=== PATIENT | male | born 1955 | race Caucasian/White ===

== ENCOUNTER 2016-08-27 17:37 | Inpatient (IN) | payer BC, OTHER ==
[2016-08-27] MEDS ORDERED: ACETAMINOPHEN 325 MG TABLET PO ONE (18:09)
--- NOTE | 2016-08-27 18:11 | ER Document Report ---
ED Medical Screen (RME) - General Stated Complaint: WEAKNESS Mode of Arrival: Wheelchair Information source: Patient Notes: Patient presents with nausea, vomiting, diarrhea that started yesterday. Patient's had fever and weakness. Patient does complain of low back pain, but reports that he has chronic low back pain. Patient reports vomiting once today but multiple episodes of diarrhea. Patient reports only mild abdominal tenderness. No chest pain or shortness of breath. hx: Diabetes, DVT with filter placement I have greeted and performed a rapid initial assessment of this patient. A comprehensive ED assessment and evaluation of the patient, analysis of test results and completion of the medical decision making process will be conducted by additional ED providers. - Related Data Allergies/Adverse Reactions: No Known Allergies Allergy (Unverified 08/27/16 18:06) Physical Exam - Vital signs Vitals: Temp Pulse Resp BP Pulse Ox 100.6 F H 141 H 21 H 133/96 H 91 L 08/27/16 17:45 08/27/16 17:45 08/27/16 17:45 08/27/16 17:45 08/27/16 17:45 - Cardiovascular Rhythm: Tachycardia Heart sounds: S1 appreciated, S2 appreciated Course - Re-evaluation Re-evalutation: 08/27/16 18:11 sprayer leather advised of patient's status and need for a room. - Vital Signs Vital signs: Temp Pulse Resp BP Pulse Ox 100.6 F H 141 H 21 H 133/96 H 91 L 08/27/16 17:45 08/27/16 17:45 08/27/16 17:45 08/27/16 17:45 08/27/16 17:45
[2016-08-27] MEDS ORDERED: NORMAL SALINE 1000 ML 1,000 ML IV ONE ×3 (18:27→19:43)
--- NOTE | 2016-08-27 18:40 | ER Document Report ---
ED General - General Chief Complaint: Nausea/Vomiting Stated Complaint: WEAKNESS Mode of Arrival: Wheelchair Notes: Patient is a 61-year-old male with past medical history of diabetes, hypertension, hyperlipidemia, history of PE status post IVC filter placement and ongoing anticoagulation who presents with 2 days of persistent vomiting and diarrhea. This is symptoms have been worsening since onset and are severe. Patient has also had a fever at home. Patient denies any history of similar symptoms. No known sick contacts. He has not seen his primary care doctor regarding today's concerns. Nothing improves or worsens. He does admit to feeling slightly short of breath. No hemoptysis but he has had cough. TRAVEL OUTSIDE OF THE [place] IN LAST 30 DAYS: No - Related Data Allergies/Adverse Reactions: No Known Allergies Allergy (Unverified 08/27/16 18:06) Home Medications: Current Home Medications Glipizide [Glucotrol 10 mg Tablet] 10 mg PO Q12 08/27/16 [History] Insulin Glargine,Hum.rec.anlog [Lantus] 22 units SQ QHS 08/27/16 [History] Lisinopril/Hydrochlorothiazide [Zestoretic 20-25 mg Tablet] 1 tab PO DAILY 08/27 [History] Metformin HCl [Glucophage] 1,000 mg PO BID 08/27/16 [History] Multivitamin [Multivitamins] 1 cap PO DAILY 08/27/16 [History] Omeprazole 20 mg PO BID 08/27/16 [History] Pravastatin Sodium [Pravachol] 40 mg PO QHS 08/27/16 [History] Past Medical History - General Information source: Patient - Social History Smoking Status: Never Smoker Chew tobacco use (# tins/day): No Frequency of alcohol use: None Drug Abuse: None Lives with: Spouse/Significant other Family History: Reviewed & Not Pertinent Patient has suicidal ideation: No Patient has homicidal ideation: No Renal/ Medical History: Denies: Hx Peritoneal Dialysis Review of Systems - Review of Systems Notes: Constitutional: Negative for fever. HENT: Negative for sore throat. Eyes: Negative for visual changes. Cardiovascular: Negative for chest pain. Respiratory: Positive for shortness of breath and cough Gastrointestinal: Negative for abdominal pain, positive for vomiting and diarrhea. Genitourinary: Negative for dysuria. Musculoskeletal: Negative for back pain. Skin: Negative for rash. Neurological: Negative for headaches, weakness or numbness. 10 point ROS negative except as marked above and in HPI. Physical Exam - Vital signs Vitals: Temp Pulse Resp BP Pulse Ox 100.6 F H 141 H 21 H 133/96 H 91 L 08/27/16 17:45 08/27/16 17:45 08/27/16 17:45 08/27/16 17:45 08/27/16 17:45 Interpretation: Hypertensive, Tachycardic, Hypoxic, Tachypneic, Febrile Notes: PHYSICAL EXAMINATION: GENERAL: Ill in appearance but in no acute distress HEAD: Atraumatic, normocephalic. EYES: Pupils equal round and reactive to light, extraocular movements intact, sclera anicteric, conjunctiva are normal. ENT: nares patent, oropharynx clear without exudates. Dry mucous membranes. NECK: Normal range of motion, supple without lymphadenopathy LUNGS: Diminished breath sounds bilaterally at the bases. Tachypnea with respiratory rate of 32 breaths per minute. No distress. HEART: Irregular tachycardia with frequent PVCs on monitor, without murmurs ABDOMEN: Obese abdomen. Soft, nontender, normoactive bowel sounds. No guarding , no rebound. No masses appreciated. EXTREMITIES: Normal range of motion, no pitting or edema. No cyanosis. NEUROLOGICAL: No focal neurological deficits. Moves all extremities spontaneously and on command. PSYCH: Normal mood, normal affect. SKIN: Warm, Dry, normal turgor, no rashes or lesions noted. Course - Re-evaluation Re-evalutation: 08/27/16 18:39 Patient presents with tachycardia, hypoxemia, tachypnea, and fever. Initial presentation concerning for either infectious gastritis with persistent vomiting and diarrhea although his hypoxemia does not fit with this presentation and I am concern that patient could have influenza versus pneumonia. A stat portable chest x-ray will be obtained. [facility] have been obtained. Patient will be immediately started on 2 L of IV fluids as he does appear clinically dehydrated on examination. Supplement oxygen as been provided. His abdominal exam is completely benign without any focal tenderness to suggest acute surgical intra-abdominal pathology at this time. His EKG does show frequent PVCs but is otherwise a sinus tachycardia. Patient is critically ill at this time and will require frequent reassessments 08/27/16 19:44 Patient's remains tachycardic although much improved from presentation. His laboratories do demonstrate a leukocytosis and findings consistent with a mild acute kidney injury in the setting of dehydration. BUN/creatinine ratio at 23 consistent with a prerenal azotemia. Patient is given 2 L and will be started on the third at this time. He will be started on levofloxacin and ceftriaxone cover for community-acquired pneumonia. He will require admission given his oxygen dependence, ongoing tachycardia and ill appearance although he does appear improved relative to my initial assessment. 08/27/16 20:06 Patient's heart rate has now down trended into the 110s. Remains mildly tachypneic although in no distress. I have contacted Dr. Nuñez for admission and he states he is unable to accept at this time. 08/28/16 01:16 Patient's tachycardia remains improved. He has again spiked temperature but otherwise remains well in appearance. Dr. Nuñez still has not contacted me for admission of this patient. 08/28/16 03:48 Dr. Nuñez has accepted for addition at this time. Patient's heart rate has improved. He remains stable at this time. - Vital Signs Vital signs: Temp Pulse Resp BP Pulse Ox 99.2 F 141 H 18 105/65 96 08/28/16 02:39 08/27/16 17:45 08/28/16 03:00 08/28/16 03:00 08/28/16 03:00 - Laboratory Result Diagrams: 08/27/16 18:20 08/27/16 18:20 Laboratory results interpreted by me: 08/27/16 08/27/16 08/27/16 18:20 18:20 23:57 WBC 14.0 H Band Neutrophils % 19 H Lymphocytes % (Manual) 3 L Monocytes % (Manual) 2 L Metamyelocytes % 1 H Abs Neuts (Manual) 13.2 H Sodium 130.7 L Chloride 96 L Carbon Dioxide 19 L BUN 34 H Creatinine 1.47 H Est GFR ( Amer) 59 L Est GFR (Non-Af Amer) 49 L Glucose 147 H POC Glucose 128 H Total Protein 8.9 H - Diagnostic Test Radiology reviewed: Image reviewed, Reports reviewed Radiology results interpreted by me: 08/27/16 19:45 Chest x-ray: Retrocardiac opacity - EKG Interpretation by Me Additional EKG results interpreted by me: 08/27/16 20:45 Sinus tachycardia. Rate 135. Frequent PVCs. QTC is 432. No ST elevations or depressions. Posterior axis deviation. No old for comparison Discharge - Discharge Clinical Impression: Sepsis Qualifiers: Sepsis type: sepsis due to unspecified organism Qualified Code(s): A41.9 - Sepsis, unspecified organism Pneumonia Qualifiers: Pneumonia type: due to unspecified organism Laterality: bilateral Lung location : unspecified part of lung Qualified Code(s): J18.9 - Pneumonia, unspecified organism Condition: Fair Disposition: ADMITTED INPATIENT Admitting Provider: [facility] Unit Admitted: [facility]
[2016-08-27 18:54] LABS: HEMOGLOBIN 13.6 g/dL (13.5-17.0); HGB HCT DIFFERENCE -0.2; MEAN CORPUSCULAR HEMOGLOBIN 29.3 pg (27.0-33.4); MEAN CORPUSCULAR HGB CONC 33.3 g/dL (32.0-36.0); MEAN CORPUSCULAR VOLUME 88 fl (80-97); PROTHROMBIN TIME 14.8 SEC (11.4-15.4); RED BLOOD COUNT 4.66 10^6/uL (4.35-5.55); RED CELL DISTRIBUTION WIDTH 13.9 % (11.5-14.0)
[2016-08-27 19:09] LABS: VENOUS BLOOD BASE EXCESS -3.8 mmol/L; VENOUS BLOOD HCO3 21.5 mmol/L (20-32); VENOUS BLOOD PCO2 39.9 mmHg (35-63); VENOUS BLOOD PH 7.35 (7.30-7.42)
[2016-08-27 19:09] LABS: BASOPHILS % (MANUAL) 0 % (0-2); EOSINOPHILS % (MANUAL) 0 % (0-6); LYMPHOCYTES % (MANUAL) 3 % (13-45); TOTAL CELLS COUNTED 100
[2016-08-27 19:12] LABS: TOXIC VACUOLATION PRESENT
[2016-08-27 19:13] LABS: ALANINE AMINOTRANSFERASE 30 U/L (21-72); ALBUMIN 4.2 g/dL (3.5-5.0); ALKALINE PHOSPHATASE 84 U/L (38-126); ANION GAP 16 (5-19); ASPARTATE AMINO TRANSFERASE 32 U/L (17-59); BILIRUBIN,TOTAL 0.7 mg/dL (0.2-1.3); BLOOD UREA NITROGEN 34 mg/dL (7-20); CALCIUM 8.9 mg/dL (8.4-10.2); CARBON DIOXIDE 19 mmol/L (22-30); CHLORIDE 96 mmol/L (98-107); CREATININE RESULT 1.47 mg/dL (0.52-1.25); GLUCOSE 147 mg/dL (75-110); LIPASE 71.1 U/L (23-300); POTASSIUM 4.2 mmol/L (3.6-5.0); SODIUM 130.7 mmol/L (137-145); TOTAL PROTEIN 8.9 g/dL (6.3-8.2)
[2016-08-27 19:16] LABS: OVALOCYTES SLIGHT; POIKILOCYTOSIS SLIGHT
[2016-08-27 19:17] LABS: BAND NEUTROPHILS % (MANUAL) 19 % (3-5); TOXIC GRANULATION SLIGHT
[2016-08-27] MEDS ORDERED: LEVOFLOXACIN 750 MG/D5W RTU 150 ML IV ONE (19:43)
[2016-08-27] MEDS ORDERED: CEFTRIAXONE 1 GM/D5W RTU 50 ML IV ONE (19:43)
[2016-08-27 21:16] LABS: APPEARANCE,URINE SLIGHTLY-CLOUDY; BILIRUBIN,URINE NEGATIVE (NEGATIVE); GLUCOSE, URINE NEGATIVE (NEGATIVE); KETONES,URINE NEGATIVE (NEGATIVE); LEUKOCYTE ESTERASE,URINE NEGATIVE (NEGATIVE); NITRITE,URINE NEGATIVE (NEGATIVE); PROTEIN,URINE NEGATIVE (NEGATIVE); URINE SPECIFIC GRAVITY 1.012; UROBILINOGEN,URINE NEGATIVE mg/dL (<2.0)
--- NOTE | 2016-08-27 23:35 | EKG REPORT ---
SEVERITY:- ABNORMAL ECG - SINUS TACHYCARDIA PAIRED VENTRICULAR PREMATURE COMPLEXES MARKEDLY POSTERIOR QRS AXIS BORDERLINE T ABNORMALITIES, INFERIOR LEADS : Confirmed by: Dominique Dickson MD 27-Aug-2016 23:35:15
[2016-08-28] MEDS ORDERED: NORMAL SALINE 1000 ML 1,000 ML IV ONE ×2 (01:14→01:15)
[2016-08-28] MEDS ORDERED: IBUPROFEN 600 MG TABLET PO ONE (01:15)
[2016-08-28] MEDS ORDERED: GUAIFENESIN SYRP 200 MG/10 ML UDC PO PRN (08:15)
[2016-08-28] MEDS ORDERED: IPRATROPIUM/ALBUTEROL 0.5-2.5 MG/3 ML AMPUL NEB PRN (08:15)
[2016-08-28] MEDS ORDERED: GLUCAGON,HUMAN RECOMB 1 MG INJ IM PRN (08:17)
[2016-08-28] MEDS ORDERED: DEXTROSE 40% GEL 15 GM TUBE PO PRN ×2 (08:17)
[2016-08-28] MEDS ORDERED: DEXTROSE 50%-WATER 25 GM/50 ML DISP.SYRIN IV PRN ×2 (08:17)
[2016-08-28 08:44] LABS: ABSOLUTE LYMPHOCYTES (AUTO) 0.7 10^3/uL (0.5-4.7); ABSOLUTE MONOCYTES (AUTO) 0.7 10^3/uL (0.1-1.4); ABSOLUTE NEUT (AUTO) 7.1 10^3/uL (1.7-8.2); BASOPHILS % (AUTO) 0.2 % (0-2); HEMATOCRIT 33.1 % (37.9-51.0); HGB HCT DIFFERENCE 0.2; LYMPHOCYTES % (AUTO) 8.6 % (13-45); MEAN CORPUSCULAR HEMOGLOBIN 29.8 pg (27.0-33.4); MEAN CORPUSCULAR HGB CONC 33.6 g/dL (32.0-36.0); MEAN CORPUSCULAR VOLUME 89 fl (80-97); RED BLOOD COUNT 3.72 10^6/uL (4.35-5.55); RED CELL DISTRIBUTION WIDTH 13.8 % (11.5-14.0); SEGMENTED NEUTROPHILS % (AUTO) 83.2 % (42-78); WHITE BLOOD COUNT 8.6 10^3/uL (4.0-10.5)
[2016-08-28 08:49] LABS: HEMOGLOBIN 11.1 g/dL (13.5-17.0)
[2016-08-28 09:10] LABS: ANION GAP 8 (5-19); BLOOD UREA NITROGEN 24 mg/dL (7-20); CALCIUM 7.5 mg/dL (8.4-10.2); CARBON DIOXIDE 21 mmol/L (22-30); CHLORIDE 106 mmol/L (98-107); CREATININE RESULT 1.03 mg/dL (0.52-1.25); GLUCOSE 109 mg/dL (75-110); SODIUM 134.9 mmol/L (137-145)
[2016-08-28] MEDS ORDERED: NICOTINE 7 MG/24 HR PATCH.TD24 TD PRN (09:53)
--- NOTE | 2016-08-28 09:54 | PDOC H&P ---
History of Present Illness Admission Date/PCP: 08/28/16 04:10 [facility] Patient complains of: N/V, weakness History of Present Illness: SHIV CRAIG is a 61 year old male with underlying type II diabetes mellitus, hyperlipidemia, arthritis, hypertension, history of pulmonary embolus and DVT, status post caval filter implant, no longer on systemic anticoagulation , and history of a bleeding peptic ulcer 6 years ago, who presents to the emergency room for evaluation of above complaints. He describes a 2 day history of 5-6 episodes of nonbloody non-melenic diarrhea, any single episode of nonbloody non-coffee ground emesis. This is been associated with subjective fever along with slight shortness of breath. Occasional mild cough. No hemoptysis. No recent antibiotic use. No friends or family have similar complaints. No unusual oral intake. Denies any known underlying pulmonary disease such as asthma, COPD, or emphysema. Was quite severely ill upon presentation to the emergency room, but has improved nicely with treatment so far and is feeling much better. Patient has been discussed with emergency room physician who evaluated the patient. . Laboratory results are listed in [facility] and are reviewed. X-ray summary results are listed below, with full report(s) reviewed. . EKG reviewed. No old EKG available for comparison. Social history/personal habits: . 2 daughters. 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 No alcohol use 10 years. No illicit drug use. Allergies/adverse reactions NKDA. Home medications are reviewed by discussion with patient and have been reconciled by nursing staff in [facility]. Home medications initially autopopulated into [facility] may not accurately reflect patient's true medications, dosages, and/or frequencies. REVIEW OF SYSTEMS: Constitutional: No fever or chills. Eyes: Wears glasses. ENT: No swallowing problems or complaints. Partial hearing loss. Pulmonary: See history and present illness. Cardiovascular: No current complaints, including chest pain. Gastrointestinal: See history and present illness. Skin: No current complaints, including rashes. Hematologic: Easy bruising. Neurologic: No current complaints, including numbness or tingling. Musculoskeletal: Joint pain from arthritis. Psychiatric: No current complaints, including anxiety or depression. Endocrine: No current complaints, including polyuria. Genitourinary: No current complaints, including dysuria. PHYSICAL EXAMINATION: 6 feet tall. 119.8 kg. BMI 35.8 kg/m. Temperature 99.2; 101.4 earlier during his emergency room visit. Blood pressure 106/74. Pulse 92 and regular. Respirations are 17 and unlabored. 99% saturation on 2 L oxygen per nasal cannula. Obese but also somewhat stocky otherwise well-developed bearded male appearing perhaps slightly older than his stated age. Pleasant awake alert and cooperative. No obvious distress other than perhaps mildly fatigued, along with perhaps slightly anxious. No agitation. is present at his side; patient approves. Skin is warm and dry. No grossly obvious evidence of rash in areas of skin examined. No subcutaneous nodules palpated. ENT: Hearing grossly normal to normal conversation. Tongue midline on protrusion pink and slightly tacky. Eyes: No scleral icterus. Pupils equal and reactive to light at 4 mm. [place] conjunctivae. Neck is supple and nontender to gentle active range of motion and palpation. Midline trachea. No palpable thyroid nodule mass enlargement or tenderness. Lymphatic: No palpable cervical or clavicular nodes. Neck and lymphatic exams limited by patient body habitus. Psychiatric: Reasonable insight into acute and chronic medical issues. Oriented to time location and why here. Lungs: Auscultation reveals clear and equal breath sounds bilaterally. No use of accessory respiratory muscles. Cardiovascular: Heart regular rate and rhythm, without gallop murmur or rub. No carotid or abdominal aortic bruits. No ankle or pedal edema. palpable dorsalis pedis pulses. Abdomen: soft, somewhat obese, nontender with positive bowel sounds. Unable to adequately evaluate abdomen for masses or organomegaly due to body habitus. Extremities: Feet are warm and dry. No calf tenderness to compression. No grossly obvious visual evidence of calf swelling. Gentle manipulation of lower extremities fails to reveal any obvious evidence of injury or instability to knees hips or ankles. Neurologic: Moves upper extremities grossly normally. Patellar reflexes absent. Absent Babinski. Light touch is intact at feet. Dorsiflexion and plantarflexion of feet 5 / 5 and symmetric. Past Medical History Cardiac Medical History: Reports: DVT, Hyperlipidema, Hypertension, Pulmonary Embolism Denies: Congestive Heart Failure, Myocardial Infarction Pulmonary Medical History: Denies: Asthma, Chronic Obstructive Pulmonary Disease (COPD) EENT Medical History: Reports: Eyes - Glasses, Ears - Partial hearing loss Denies: Throat Neurological Medical History: Denies: Hemorrhagic CVA, Ischemic CVA, Seizures Endocrine Medical History: Reports: Diabetes Mellitus Type 2 Denies: Hyperthyroidism, Hypothyroidism Renal/ Medical History: Reports: None GI Medical History: Reports: Peptic Ulcer Disease - History of bleeding peptic ulcer disease, 6 years ago. Denies: Cirrhosis, Gastroesophageal Reflux Disease, Hepatitis Musculoskeltal Medical History: Reports: Arthritis Skin Medical History: Reports: None Denies: Eczema, Psoriasis Psychiatric Medical History: Reports: Tobacco Dependency Denies: Alcohol Dependency, Depression, General Anxiety Disorder, Substance Abuse Hematology: Reports: Other - Easy bruising Infectious Medical History: Denies: Hepatitis B, Hepatitis C Past Surgical History Past Surgical History: Reports: Tonsillectomy, Other - Caval filter implant. Social History Information Source: Patient Lives with: Spouse/Significant other Smoking Status: Never Smoker - Dips snuff. Frequency of Alcohol Use: None Drugs: None - Advance Directive Resuscitation Status: Full Code Surrogate healthcare decision maker:: Family History Family History: Reviewed & Not Pertinent Parental Family History Reviewed: Yes Children Family History Reviewed: Yes Sibling(s) Family History Reviewed.: Yes Medication/Allergy Home Medications: Glipizide [Glucotrol 10 mg Tablet] 10 mg PO BIDACBS 08/27/16 Insulin Glargine,Hum.rec.anlog [Lantus] 22 units SQ QHS 08/27/16 Lisinopril/Hydrochlorothiazide [Zestoretic 20-25 mg Tablet] 1 tab PO DAILY 08/27 Metformin HCl [Glucophage] 1,000 mg PO BID 08/27/16 Multivitamin [Multivitamins] 1 cap PO DAILY 08/27/16 Omeprazole 20 mg PO BID 08/27/16 Pravastatin Sodium [Pravachol] 40 mg PO QHS 08/27/16 Allergies/Adverse Reactions: No Known Allergies Allergy (Unverified 08/27/16 18:06) Physical Exam Vital Signs: Temp Pulse Resp BP Pulse Ox 97.7 F 87 18 88/63 L 98 08/28/16 07:44 08/28/16 07:44 08/28/16 07:44 08/28/16 07:44 08/28/16 07:44 Intake & Output 08/27/16 08/28/16 08/29/16 00:59 00:59 00:59 Weight 119.8 kg Results Impressions: Chest X-Ray 02/24/17 18:10 IMPRESSION: RETROCARDIAC AIRSPACE DISEASE COULD BE SUBSEGMENTAL ATELECTASIS OR PNEUMONIA. Assessment & Plan - Diagnosis (1) Acidosis Is this a current diagnosis for this admission?: YesPlan: Likely secondary to underlying pneumonia. Should clear with treatment. (2) Pneumonia Qualifiers: Pneumonia type: due to unspecified organism Laterality: unspecified laterality Lung location: unspecified part of lung Qualified Code(s) : J18.9 - Pneumonia, unspecified organism Is this a current diagnosis for this admission?: YesPlan: Patient will be admitted under pneumonia protocol. Incentive spirometry twice a day. PRN DuoNeb's. Antibiotics will consist of Rocephin and intravenous Zithromax.. I strongly encouraged patient to notify staff should patient feel that respiratory status is worsening. Patient is a full code. I have strongly encouraged patient not to get out of bed without notifying staff , , to avoid a fall with injury. Knee high SCDs for DVT prophylaxis, along with subcutaneous Lovenox Impression and plans were discussed with patient, and , both of whom concur. Time spent in evaluation and management of patient: 67 minutes. (3) Renal insufficiency Is this a current diagnosis for this admission?: YesPlan: Probably an element of dehydration. No old labs available for comparison. Follow-up chemistry. (4) Diarrhea Qualifiers: Diarrhea type: unspecified type Qualified Code(s): R19.7 - Diarrhea , unspecified Is this a current diagnosis for this admission?: YesPlan: Stool for C. difficile. (5) Diabetes mellitus type 2 in obese Is this a current diagnosis for this admission?: YesPlan: Diabetic cardiac diet. Accu-Cheks with appropriate sliding scale coverage.Resume home medications as appropriate once these have been reviewed. (6) HTN (hypertension) Qualifiers: Hypertension type: essential hypertension Qualified Code(s): I10 - Essential (primary) hypertension Is this a current diagnosis for this admission?: YesPlan: Resume home medications as appropriate once these have been reviewed. (7) History of DVT (deep vein thrombosis) Is this a current diagnosis for this admission?: Yes (8) History of pulmonary embolism Is this a current diagnosis for this admission?: Yes (9) Hyperlipidemia Qualifiers: Hyperlipidemia type: unspecified Qualified Code(s): E78.5 - Hyperlipidemia, unspecified Is this a current diagnosis for this admission?: YesPlan: Resume home medications as appropriate once these have been reviewed. (10) S/P insertion of inferior vena caval filter Is this a current diagnosis for this admission?: Yes (11) Tobacco dependency Is this a current diagnosis for this admission?: YesPlan: When necessary nicotine patch. - Inpatient Certification Based on my medical assessment, after consideration of the patient's comorbidities, presenting symptoms, or acuity I expect that the services needed warrant INPATIENT care.: Yes I certify that my determination is in accordance with my understanding of Medicare's requirements for reasonable and necessary INPATIENT services [42 CFR 412.3e].: Yes Medical Necessity: Need Close Monitoring Due to Risk of Patient Decompensation, Need for IV Antibiotics, Risk of Complication if Not Cared For in Hospital
[2016-08-28] MEDS ORDERED: (PENDING PHARMACY ID) (Multivitamin [Multivitamins] 1 CAP) PO SCH (10:00)
[2016-08-28] MEDS ORDERED: (PENDING PHARMACY ID) (Lisinopril/Hydrochlorothiazide [Zestoretic 20-25 Mg Tablet] 1 TAB) PO SCH (10:00)
[2016-08-28] MEDS ORDERED: HYDROCHLOROTHIAZIDE 25 MG TABLET PO ONE (12:00)
[2016-08-28] MEDS ORDERED: GLIPIZIDE 5 MG TABLET PO ONE (12:00)
[2016-08-28] MEDS ORDERED: LISINOPRIL 10 MG TABLET PO ONE (12:00)
[2016-08-28] MEDS ORDERED: MULTIVITAMIN TABLET PO ONE (12:00)
[2016-08-28] MEDS: AZITHROMYCIN 500 MG in DEXTROSE 5%-WATER 250 ML IV SCH (12:10)
[2016-08-28] MEDS ORDERED: ASPIRIN 325 MG TABLET ONE (12:13)
[2016-08-28] MEDS: ACETAMINOPHEN 325 MG TABLET PO PRN ×2 (14:15→20:13)
--- NOTE | 2016-08-28 17:21 | PDOC PROGRESS REPORT ---
Subjective Progress Note for:: 08/28/16 Subjective:: This 61-year-old man with a history of diabetes hyperlipidemia hypertension arthritis history of DVT and pulmonary embolism, history of IVC filter placement and history of bleeding peptic ulcer 6 years ago. He presented to the ED early this morning with a 2 day history of breath, nonproductive cough, subjective fevers and several episodes of diarrhea. In the ED his WBC was 14.0 but his systolic blood pressure was in the 80s and he appeared quite ill. His venous CO2 was slightly low and his venous pH was 7.35. Chest x-ray showed a retrocardiac opacity. He received 2 IV fluids in the emergency department and the patient felt much better afterwards. He was subsequently admitted with a diagnosis of pneumonia and mild acidosis. He was started on Rocephin and intravenous Zithromax. Physical Exam Vital Signs: Temp Pulse Resp BP Pulse Ox 99.8 F 98 14 119/76 98 08/28/16 14:55 08/28/16 15:30 08/28/16 15:30 08/28/16 14:55 08/28/16 15:30 General appearance: PRESENT: no acute distress, well-developed, well-nourished Head exam: PRESENT: atraumatic, normocephalic Eye exam: PRESENT: conjunctiva pink, EOMI, PERRLA. ABSENT: scleral icterus Ear exam: PRESENT: normal external ear exam Mouth exam: PRESENT: moist, tongue midline Neck exam: ABSENT: carotid bruit, JVD, lymphadenopathy, thyromegaly Respiratory exam: PRESENT: clear to auscultation nora. ABSENT: rales, rhonchi, wheezes Cardiovascular exam: PRESENT: RRR. ABSENT: diastolic murmur, rubs, systolic murmur Pulses: PRESENT: normal dorsalis pedis pul Vascular exam: PRESENT: normal capillary refill GI/Abdominal exam: PRESENT: normal bowel sounds, soft. ABSENT: distended, guarding, mass, organolmegaly, rebound, tenderness Rectal exam: PRESENT: deferred Extremities exam: PRESENT: full ROM. ABSENT: calf tenderness, clubbing, pedal edema Neurological exam: PRESENT: alert, awake, oriented to person, oriented to place , oriented to time, oriented to situation, CN II-XII grossly intact. ABSENT: motor sensory deficit Psychiatric exam: PRESENT: appropriate affect, normal mood. ABSENT: homicidal ideation, suicidal ideation Skin exam: PRESENT: dry, intact, warm. ABSENT: cyanosis, rash Results Laboratory Results: 08/28/16 08:38 08/28/16 08:38 08/28/16 08/28/16 08:38 08:38 WBC 8.6 RBC 3.72 L Hgb 11.1 L D Hct 33.1 L MCV 89 MCH 29.8 MCHC 33.6 RDW 13.8 Plt Count 257 Seg Neutrophils % 83.2 H Lymphocytes % 8.6 L Monocytes % 8.0 Eosinophils % 0.0 Basophils % 0.2 Absolute Neutrophils 7.1 Absolute Lymphocytes 0.7 Absolute Monocytes 0.7 Absolute Eosinophils 0.0 Absolute Basophils 0.0 Sodium 134.9 L Potassium 4.0 Chloride 106 Carbon Dioxide 21 L Anion Gap 8 BUN 24 H Creatinine 1.03 Est GFR ( Amer) > 60 Est GFR (Non-Af Amer) > 60 Glucose 109 Calcium 7.5 L Impressions: Chest X-Ray 08/27/16 18:10 IMPRESSION: RETROCARDIAC AIRSPACE DISEASE COULD BE SUBSEGMENTAL ATELECTASIS OR PNEUMONIA. Assessment & Plan - Diagnosis (1) Pneumonia Qualifiers: Pneumonia type: due to unspecified organism Laterality: left Lung location: unspecified part of lung Qualified Code(s): J18.9 - Pneumonia, unspecified organism Is this a current diagnosis for this admission?: YesPlan: Continue Rocephin and intravenous Zithromax. (2) Hypotension Is this a current diagnosis for this admission?: YesPlan: I suspect this is largely due to continued use of his antihypertensive medication in the face of mild dehydration. Will continue IV fluids. (3) Renal insufficiency Is this a current diagnosis for this admission?: YesPlan: I suspect this is largely prerenal azotemia. We'll monitor on IV fluids. (4) Diabetes mellitus type 2 in obese Is this a current diagnosis for this admission?: YesPlan: We'll continue home medications and monitor. (5) HTN (hypertension) Qualifiers: Hypertension type: essential hypertension Qualified Code(s): I10 - Essential (primary) hypertension Is this a current diagnosis for this admission?: YesPlan: Currently hypotensive. We'll hold his lisinopril/hydrochlorothiazide as needed. (6) Hyperlipidemia Qualifiers: Hyperlipidemia type: unspecified Qualified Code(s): E78.5 - Hyperlipidemia, unspecified Is this a current diagnosis for this admission?: Yes (7) History of DVT (deep vein thrombosis) Is this a current diagnosis for this admission?: Yes (8) History of pulmonary embolism Is this a current diagnosis for this admission?: Yes (9) S/P insertion of inferior vena caval filter Is this a current diagnosis for this admission?: Yes - Time Time Spent with patient: 25-34 minutes
[2016-08-28] MEDS: CEFTRIAXONE 1 GM/D5W RTU 1 GM/50 ML RTUPB IV SCH (17:39)
[2016-08-28] MEDS: GLIPIZIDE 5 MG TABLET PO SCH (17:43)
[2016-08-28] MEDS: ATORVASTATIN CALCIUM 10 MG TABLET PO SCH (21:35)
[2016-08-28] MEDS ORDERED: (PENDING PHARMACY ID) (Pravastatin Sodium [Pravachol] 40 MG) PO SCH (22:00)
[2016-08-28] MEDS: INSULIN GLARGINE,HUM.REC.ANLOG 300 UNIT/3 ML INSULN.PEN SUBCUT SCH (22:23)
[2016-08-29 05:59] LABS: ABSOLUTE BASOPHILS # (AUTO) 0.1 10^3/uL (0.0-0.2); ABSOLUTE LYMPHOCYTES (AUTO) 0.9 10^3/uL (0.5-4.7); ABSOLUTE MONOCYTES (AUTO) 0.5 10^3/uL (0.1-1.4); ABSOLUTE NEUT (AUTO) 4.8 10^3/uL (1.7-8.2); BASOPHILS % (AUTO) 1.2 % (0-2); EOSINOPHILS % (AUTO) 0.5 % (0-6); HEMATOCRIT 33.6 % (37.9-51.0); HEMOGLOBIN 11.5 g/dL (13.5-17.0); HGB HCT DIFFERENCE 0.9; LYMPHOCYTES % (AUTO) 14.2 % (13-45); MEAN CORPUSCULAR HEMOGLOBIN 30.3 pg (27.0-33.4); MEAN CORPUSCULAR HGB CONC 34.4 g/dL (32.0-36.0); MEAN CORPUSCULAR VOLUME 88 fl (80-97); MONOCYTES % (AUTO) 8.1 % (3-13); RED BLOOD COUNT 3.81 10^6/uL (4.35-5.55); RED CELL DISTRIBUTION WIDTH 13.9 % (11.5-14.0); WHITE BLOOD COUNT 6.3 10^3/uL (4.0-10.5)
[2016-08-29 06:22] LABS: ANION GAP 10 (5-19); BLOOD UREA NITROGEN 14 mg/dL (7-20); CALCIUM 8.8 mg/dL (8.4-10.2); CARBON DIOXIDE 23 mmol/L (22-30); CHLORIDE 105 mmol/L (98-107); CREATININE RESULT 0.77 mg/dL (0.52-1.25); GLUCOSE 92 mg/dL (75-110); SODIUM 137.5 mmol/L (137-145)
[2016-08-29] MEDS: ENOXAPARIN SODIUM INJ 40 MG/0.4 ML DISP.SYRIN SUBCUT SCH (08:01)
[2016-08-29] MEDS: GLIPIZIDE 5 MG TABLET PO SCH ×2 (08:01→17:19)
[2016-08-29] MEDS: LISINOPRIL 10 MG TABLET PO SCH (10:22)
[2016-08-29] MEDS: AZITHROMYCIN 500 MG in DEXTROSE 5%-WATER 250 ML IV SCH (10:22)
[2016-08-29] MEDS: MULTIVITAMIN TABLET PO SCH (10:22)
[2016-08-29] MEDS: HYDROCHLOROTHIAZIDE 25 MG TABLET PO SCH (10:24)
[2016-08-29] MEDS: OXYCODONE HCL IR 5 MG TABLET PO PRN ×2 (12:36→19:55)
--- NOTE | 2016-08-29 14:31 | PDOC PROGRESS REPORT ---
Subjective Progress Note for:: 08/29/16 Subjective:: This 61-year-old man with a history of diabetes hyperlipidemia hypertension arthritis history of DVT and pulmonary embolism, history of IVC filter placement and history of bleeding peptic ulcer 6 years ago. He presented to the ED early this morning with a 2 day history of shortness of breath, nonproductive cough, subjective fevers and several episodes of diarrhea. In the ED his WBC was 14.0 but his systolic blood pressure was in the 80s and he appeared quite ill. His venous CO2 was slightly low and his venous pH was 7.35. Chest x-ray showed a retrocardiac opacity. He received 2 IV fluids in the emergency department and the patient felt much better afterwards. He was subsequently admitted with a diagnosis of pneumonia and mild acidosis. He was started on Rocephin and intravenous Zithromax. Today the patient feels better than on admission but still not very well. He complains of severe general malaise and headache. He feels weak but not particularly short of breath. He does not have a cough. He has mild abdominal pain and mild diarrhea. He has scattered muscular aches and pains, especially low back pain. Physical Exam Vital Signs: Temp Pulse Resp BP Pulse Ox 98.4 F 84 16 122/75 98 08/29/16 11:34 08/29/16 14:11 08/29/16 14:11 08/29/16 11:34 08/29/16 14:11 Intake & Output 08/28/16 08/29/16 08/30/16 06:59 06:59 06:59 Intake Total 2860 Output Total 950 Balance 1910 Weight 118.8 kg Additional comments: General appearance: PRESENT: mild distress, well-developed, well-nourished Head exam: PRESENT: atraumatic, normocephalic Eye exam: PRESENT: conjunctiva pink, EOMI, PERRLA. ABSENT: scleral icterus Ear exam: PRESENT: normal external ear exam Mouth exam: PRESENT: moist, tongue midline Neck exam: ABSENT: carotid bruit, JVD, lymphadenopathy, thyromegaly Respiratory exam: PRESENT: clear to auscultation nora. ABSENT: rales, rhonchi, wheezes Cardiovascular exam: PRESENT: RRR. ABSENT: diastolic murmur, rubs, systolic murmur Pulses: PRESENT: normal dorsalis pedis pul Vascular exam: PRESENT: normal capillary refill GI/Abdominal exam: PRESENT: normal bowel sounds, soft. ABSENT: distended, guarding, mass, organolmegaly, rebound, tenderness Rectal exam: PRESENT: deferred Extremities exam: PRESENT: full ROM. ABSENT: calf tenderness, clubbing, pedal edema Neurological exam: PRESENT: alert, awake, oriented to person, oriented to place , oriented to time, oriented to situation, CN II-XII grossly intact. ABSENT: motor sensory deficit Psychiatric exam: PRESENT: appropriate affect, normal mood. ABSENT: homicidal ideation, suicidal ideation Skin exam: PRESENT: dry, intact, warm. ABSENT: cyanosis, rash Results Laboratory Results: 08/29/16 05:07 08/29/16 05:07 08/29/16 08/29/16 05:07 05:07 WBC 6.3 RBC 3.81 L Hgb 11.5 L Hct 33.6 L MCV 88 MCH 30.3 MCHC 34.4 RDW 13.9 Plt Count 270 Seg Neutrophils % 76.0 Lymphocytes % 14.2 Monocytes % 8.1 Eosinophils % 0.5 Basophils % 1.2 Absolute Neutrophils 4.8 Absolute Lymphocytes 0.9 Absolute Monocytes 0.5 Absolute Eosinophils 0.0 Absolute Basophils 0.1 Sodium 137.5 Potassium 4.0 Chloride 105 Carbon Dioxide 23 Anion Gap 10 BUN 14 Creatinine 0.77 Est GFR ( Amer) > 60 Est GFR (Non-Af Amer) > 60 Glucose 92 Calcium 8.8 Impressions: Chest X-Ray 08/27/16 18:10 IMPRESSION: RETROCARDIAC AIRSPACE DISEASE COULD BE SUBSEGMENTAL ATELECTASIS OR PNEUMONIA. Assessment & Plan - Diagnosis (1) Pneumonia Qualifiers: Pneumonia type: due to unspecified organism Laterality: left Lung location: unspecified part of lung Qualified Code(s): J18.9 - Pneumonia, unspecified organism Is this a current diagnosis for this admission?: YesPlan: Treating as pneumonia because of slightly abnormal chest x-ray, nonproductive cough on admission, weakness and shortness of breath. However he remains afebrile. His initial white count of 14.0 his improved steadily to 8.6, then to 6.3. He remains on IV Rocephin and azithromycin. (2) Hypotension Is this a current diagnosis for this admission?: YesPlan: Hypotension has resolved. He remains on IV fluids. (3) Renal insufficiency Is this a current diagnosis for this admission?: YesPlan: His acute renal failure of admission was prerenal azotemia. It has completely normalized on IV fluids. We'll continue to monitor. (4) Diabetes mellitus type 2 in obese Is this a current diagnosis for this admission?: YesPlan: Glucose is well controlled. Continue current Rx. (5) HTN (hypertension) Qualifiers: Hypertension type: essential hypertension Qualified Code(s): I10 - Essential (primary) hypertension Is this a current diagnosis for this admission?: YesPlan: Hypertension is well controlled. Continue current Rx. (6) Hyperlipidemia Qualifiers: Hyperlipidemia type: unspecified Qualified Code(s): E78.5 - Hyperlipidemia, unspecified Is this a current diagnosis for this admission?: Yes (7) History of DVT (deep vein thrombosis) Is this a current diagnosis for this admission?: YesPlan: On Lovenox prophylaxis. (8) History of pulmonary embolism Is this a current diagnosis for this admission?: Yes (9) S/P insertion of inferior vena caval filter Is this a current diagnosis for this admission?: Yes - Time Time Spent with patient: 15-24 minutes
[2016-08-29] MEDS: CEFTRIAXONE 1 GM/D5W RTU 1 GM/50 ML RTUPB IV SCH (17:26)
[2016-08-29] MEDS: ATORVASTATIN CALCIUM 10 MG TABLET PO SCH (22:01)
[2016-08-29] MEDS: NORMAL SALINE 1000 ML 1,000 ML IV PRN (22:02)
[2016-08-29] MEDS: INSULIN GLARGINE,HUM.REC.ANLOG 300 UNIT/3 ML INSULN.PEN SUBCUT SCH (22:03)
[2016-08-30] MEDS: NORMAL SALINE 1000 ML 1,000 ML IV PRN (05:45)
[2016-08-30 06:53] LABS: ABSOLUTE EOSINOPHILS # (AUTO) 0.1 10^3/uL (0.0-0.6); ABSOLUTE LYMPHOCYTES (AUTO) 0.8 10^3/uL (0.5-4.7); ABSOLUTE MONOCYTES (AUTO) 0.6 10^3/uL (0.1-1.4); ABSOLUTE NEUT (AUTO) 3.9 10^3/uL (1.7-8.2); BASOPHILS % (AUTO) 0.5 % (0-2); EOSINOPHILS % (AUTO) 1.1 % (0-6); HEMATOCRIT 32.5 % (37.9-51.0); HGB HCT DIFFERENCE 0.5; LYMPHOCYTES % (AUTO) 14.3 % (13-45); MEAN CORPUSCULAR HEMOGLOBIN 29.9 pg (27.0-33.4); MEAN CORPUSCULAR HGB CONC 33.7 g/dL (32.0-36.0); MEAN CORPUSCULAR VOLUME 89 fl (80-97); RED BLOOD COUNT 3.67 10^6/uL (4.35-5.55); RED CELL DISTRIBUTION WIDTH 13.7 % (11.5-14.0); SEGMENTED NEUTROPHILS % (AUTO) 72.1 % (42-78); WHITE BLOOD COUNT 5.4 10^3/uL (4.0-10.5)
[2016-08-30 07:11] LABS: ANION GAP 9 (5-19); BLOOD UREA NITROGEN 10 mg/dL (7-20); CALCIUM 8.8 mg/dL (8.4-10.2); CARBON DIOXIDE 23 mmol/L (22-30); CHLORIDE 105 mmol/L (98-107); CREATININE RESULT 0.72 mg/dL (0.52-1.25); GLUCOSE 88 mg/dL (75-110); SODIUM 137.3 mmol/L (137-145)
[2016-08-30] MEDS: ENOXAPARIN SODIUM INJ 40 MG/0.4 ML DISP.SYRIN SUBCUT SCH (09:53)
[2016-08-30] MEDS: LISINOPRIL 10 MG TABLET PO SCH (09:54)
[2016-08-30] MEDS: HYDROCHLOROTHIAZIDE 25 MG TABLET PO SCH (09:55)
[2016-08-30] MEDS: MULTIVITAMIN TABLET PO SCH (09:55)
[2016-08-30] MEDS: GLIPIZIDE 5 MG TABLET PO SCH (09:55)
[2016-08-30 12:49] LABS: PATH REVIEW PATHOLOGIST REVIEWED
[2016-08-30 12:56] VITALS: BP 88/63
--- NOTE | 2016-08-30 13:14 | PDOC DISCHARGE SUMMARY ---
General - Admit/Disc Date/PCP Admission Date/Primary Care Provider: 08/28/16 08:15 Discharge Date: 08/30/16 - Discharge Diagnosis (1) Pneumonia Is this a current diagnosis for this admission?: YesSummary: This 61-year-old man with a history of diabetes, hyperlipidemia, hypertension, arthritis, history of DVT and pulmonary embolism, history of IVC filter placement and history of peptic ulcer 6 years ago presented to the ED with a 2 day history of shortness of breath, nonproductive cough, subjective fevers, and several episodes of diarrhea. The admission chest x-ray showed a retrocardiac shadow that there could be subsegmental atelectasis or pneumonia. While in the hospital he continued to complain of severe general malaise, myalgias and headache. The cough was never productive. His chest was never congested. His shortness of breath resolved. His initial white blood count elevation of 14.0 rapidly defervesced to normal. The overall picture seems most consistent with a viral process including the probability of a viral pneumonia. He was treated with antibiotics for a few days but after developing a rash these were discontinued. At the time of discharge his lungs are clear, the cough has resolved, and he has normal oxygenation on room air. (2) Hypotension Is this a current diagnosis for this admission?: YesSummary: Resolved. He will resume his blood pressure medications. (3) Renal insufficiency Is this a current diagnosis for this admission?: YesSummary: His mild acute renal failure on admission was prerenal azotemia. It completely normalized on IV fluids after the first day. (4) Diabetes mellitus type 2 in obese Is this a current diagnosis for this admission?: YesSummary: Glucose remained in good control. He will continue his home medications. (5) HTN (hypertension) Is this a current diagnosis for this admission?: YesSummary: Blood pressure is within acceptable range. He will continue his home medications. (6) Hyperlipidemia Is this a current diagnosis for this admission?: YesSummary: Continue home Rx. (7) History of DVT (deep vein thrombosis) Is this a current diagnosis for this admission?: YesSummary: He received to prophylactic dose Lovenox during the hospitalization. There is no clinical evidence of DVT. (8) History of pulmonary embolism Is this a current diagnosis for this admission?: Yes (9) S/P insertion of inferior vena caval filter Is this a current diagnosis for this admission?: Yes - Additional Information Resuscitation Status: Full Code Discharge Diet: Diabetic Discharge Activity: Activity As Tolerated Home Medications: Glipizide [Glucotrol 10 mg Tablet] 10 mg PO BIDACBS 08/27/16 Insulin Glargine,Hum.rec.anlog [Lantus] 22 units SQ QHS 08/27/16 Lisinopril/Hydrochlorothiazide [Zestoretic 20-25 mg Tablet] 1 tab PO DAILY 08/27 Metformin HCl [Glucophage] 1,000 mg PO BID 08/27/16 Multivitamin [Multivitamins] 1 cap PO DAILY 08/27/16 Omeprazole 20 mg PO BID 08/27/16 Pravastatin Sodium [Pravachol] 40 mg PO QHS 08/27/16 History of Present Illness Patient complains of: Shortness of breath, nonproductive cough, subjective fevers, diarrhea, malaise, headache, myalgias History of Present Illness: This 61-year-old man with a history of diabetes hyperlipidemia hypertension arthritis history of DVT and pulmonary embolism, history of IVC filter placement and history of bleeding peptic ulcer 6 years ago. He presented to the ED early this morning with a 2 day history of breath, nonproductive cough, subjective fevers and several episodes of diarrhea. In the ED his WBC was 14.0 but his systolic blood pressure was in the 80s and he appeared quite ill. His venous CO2 was slightly low and his venous pH was 7.35. Chest x-ray showed a retrocardiac opacity. He received 2 IV fluids in the emergency department and the patient felt much better afterwards. He was subsequently admitted with a diagnosis of pneumonia and mild acidosis. He was started on Rocephin and intravenous Zithromax. Hospital Course Hospital Course: The patient was treated with IV fluids and intravenous Rocephin and Zithromax. He also received symptomatic treatment for his myalgias and headache. He felt much better even after his first 2 L of IV fluids. And felt progressively better as the hospitalization and continued. On the day prior to discharge she developed a generalized rash. His antibiotics were discontinued. On the day of discharge the patient is feeling much improved overall. He will be discharged home to continue his previous home medications. He will seek follow-up with his primary care physician. Physical Exam Vital Signs: Temp Pulse Resp BP Pulse Ox 98.1 F 78 20 88/63 L 99 08/30/16 12:53 08/30/16 12:53 08/30/16 12:53 08/30/16 12:53 08/30/16 12:53 Intake & Output 08/29/16 08/30/16 08/31/16 06:59 06:59 06:59 Intake Total 2860 5410 Output Total 950 Balance 1910 5410 Weight 118.8 kg 118 kg Additional comments: General appearance: no acute distress, well-developed, well-nourished Head exam: PRESENT: atraumatic, normocephalic Eye exam: PRESENT: conjunctiva pink, EOMI, PERRLA. ABSENT: scleral icterus Ear exam: PRESENT: normal external ear exam Mouth exam: PRESENT: moist, tongue midline Neck exam: ABSENT: carotid bruit, JVD, lymphadenopathy, thyromegaly Respiratory exam: PRESENT: clear to auscultation nora. ABSENT: rales, rhonchi, wheezes Cardiovascular exam: PRESENT: RRR. ABSENT: diastolic murmur, rubs, systolic murmur Pulses: PRESENT: normal dorsalis pedis pul Vascular exam: PRESENT: normal capillary refill GI/Abdominal exam: PRESENT: normal bowel sounds, soft. ABSENT: distended, guarding, mass, organolmegaly, rebound, tenderness Rectal exam: PRESENT: deferred Extremities exam: PRESENT: full ROM. ABSENT: calf tenderness, clubbing, pedal edema Neurological exam: PRESENT: alert, awake, oriented to person, oriented to place , oriented to time, oriented to situation, CN II-XII grossly intact. ABSENT: motor sensory deficit Psychiatric exam: PRESENT: appropriate affect, normal mood. ABSENT: homicidal ideation, suicidal ideation Skin exam: PRESENT: dry, intact, warm. ABSENT: cyanosis, rash Results Laboratory Results: 08/30/16 06:04 08/30/16 06:04 08/30/16 08/30/16 06:04 06:04 WBC 5.4 RBC 3.67 L Hgb 11.0 L Hct 32.5 L MCV 89 MCH 29.9 MCHC 33.7 RDW 13.7 Plt Count 269 Seg Neutrophils % 72.1 Lymphocytes % 14.3 Monocytes % 12.0 Eosinophils % 1.1 Basophils % 0.5 Absolute Neutrophils 3.9 Absolute Lymphocytes 0.8 Absolute Monocytes 0.6 Absolute Eosinophils 0.1 Absolute Basophils 0.0 Sodium 137.3 Potassium 4.0 Chloride 105 Carbon Dioxide 23 Anion Gap 9 BUN 10 Creatinine 0.72 Est GFR ( Amer) > 60 Est GFR (Non-Af Amer) > 60 Glucose 88 Calcium 8.8 Impressions: Chest X-Ray 08/27/16 18:10 IMPRESSION: RETROCARDIAC AIRSPACE DISEASE COULD BE SUBSEGMENTAL ATELECTASIS OR PNEUMONIA. Qualifiers PATEINT BEING DISCHARGED WITH ANY OF THE FOLLOWING DIAGNOSIS?: No
== END 2016-08-30 13:29 | disposition home or self-care (01) | DRG 194 ==
LOC: ER 17:37 → EH 08-28 04:10 → UNDOADMIN 08-28 04:10 → EH 08-28 07:27 → 3W 08-28 07:27 → 4W 08-29 19:36
PROVIDERS: ADMIT Family Medicine; ATTEND Family Medicine
PROC: 3E0F73Z Introduction of Anti-inflammatory into Respiratory Tract, Via Natural or Artificial Opening (ICD-10-PCS; principal; 2016-08-28)
DX: J18.9 Pneumonia, unspecified organism (principal); N17.9 Acute kidney failure, unspecified; E87.2 Acidosis; E11.9 Type 2 diabetes mellitus without complications; E78.5 Hyperlipidemia, unspecified; I10 Essential (primary) hypertension; M19.90 Unspecified osteoarthritis, unspecified site; I95.9 Hypotension, unspecified; F17.210 Nicotine dependence, cigarettes, uncomplicated; E86.0 Dehydration; E66.9 Obesity, unspecified; Z68.35 Body mass index [BMI] 35.0-35.9, adult; Z86.718 Personal history of other venous thrombosis and embolism; Z86.711 Personal history of pulmonary embolism; Z87.11 Personal history of peptic ulcer disease; Z79.899 Other long term (current) drug therapy
CPT/HCPCS: 36415; 71010; 80048; 80053; 81001; 82803; 82962; 83605; 83690; 85025; 85610; 87040; 87086; 87493; 87804; 93005; 93010; 94799; 99285; J0456; J0696; J1650; J1815; J1956; J3490; J7030; J7060

== ENCOUNTER 2017-07-13 10:44 | Emergency (ER) | payer OTHER, BC ==
[2017-07-13] MEDS ORDERED: HYDROCODONE/ACETAMINOPHEN 5-325 MG TABLET PO ONE (11:29)
--- NOTE | 2017-07-13 12:17 | RADIOLOGY REPORT (SQ) ---
EXAM DESCRIPTION: CHEST PA/LAT COMPLETED DATE/TIME: 07/13/2017 12:07 pm REASON FOR STUDY: fall, pain, cough COMPARISON: Chest films 08/27/2016, 07/03/2009 CT angio chest 07/03/2009 EXAM PARAMETERS: NUMBER OF VIEWS: two views TECHNIQUE: Digital Frontal and Lateral radiographic views of the chest acquired. RADIATION DOSE: NA LIMITATIONS: none FINDINGS: LUNGS AND PLEURA: No opacities, masses or pneumothorax. No pleural effusion. MEDIASTINUM AND HILAR STRUCTURES: No masses or contour abnormalities. HEART AND VASCULAR STRUCTURES: Heart normal size. No evidence for failure. Tortuous uncoiled thorac ic aorta BONES: Chronic appearing 50% compression deformity of T10 HARDWARE: None in the chest. OTHER: No other significant finding. IMPRESSION: No acute findings TECHNICAL DOCUMENTATION: JOB ID: [id number] [employer]- All Rights Reserved
--- NOTE | 2017-07-13 12:21 | RADIOLOGY REPORT (SQ) ---
EXAM DESCRIPTION: HIP LEFT AP/LATERAL COMPLETED DATE/TIME: 07/13/2017 12:07 pm REASON FOR STUDY: fall, pain, cough COMPARISON: Chest films same date NUMBER OF VIEWS: Two views. TECHNIQUE: AP pelvis and additional frog-leg view of the left hip. LIMITATIONS: None. FINDINGS: MINERALIZATION: Diffusely abnormal. Multiple permeative lytic lesions are seen throughout the bony pelvis and proximal femurs well worrisome for myeloma. Metastatic disease could also cause this appearance. LEFT HIP: Very subtle left femoral neck lucency with surrounding sclerosis worrisome for insufficienc y fracture. This is marked with an arrow. Left hip joint space well maintained. No bulky bony spur ring. RIGHT HIP: No fracture or dislocation. No joint space narrowing or bony spurring. PUBIS AND ISCHIUM: No fracture. PELVIS: No fracture. SACRUM: No fracture or dislocation. No worrisome bone lesions. SOFT TISSUES: No findings. OTHER: No other significant finding. IMPRESSION: Very subtle left femoral neck lucency with surrounding sclerosis worrisome for insuffici ency or pathologic fracture. This is nondisplaced nonangulated. Multiple lytic lesions throughout the visualized bony structures worrisome for myeloma or metastatic disease TECHNICAL DOCUMENTATION: JOB ID: [id number] [employer]- All Rights Reserved
--- NOTE | 2017-07-13 14:00 | RADIOLOGY REPORT (SQ) ---
EXAM DESCRIPTION: CT PELVIS WITHOUT COMPLETED DATE/TIME: 07/13/2017 1:36 pm REASON FOR STUDY: possible femoral neck fx on x ray? COMPARISON: Radiographs from earlier. TECHNIQUE: CT scan of the pelvis performed without intravenous or oral contrast. Images reviewed wi th soft tissue and bone windows. Reconstructed coronal and sagittal MPR images reviewed. All images stored on PACS. All CT scanners at this facility use dose modulation, iterative reconstruction, and/or weight based d osing when appropriate to reduce radiation dose to as low as reasonably achievable (ALARA). [facility]: Dose Right [facility]: CareDose [facility]: Dose Right [facility]: Teradose 4D [facility]: Smart [employer] RADIATION DOSE: CT Rad equipment meets quality standard of care and radiation dose reduction techniq ues were employed. CTDIvol: 33.7 mGy. DLP: 1292 mGy-cm. mGy. LIMITATIONS: None. FINDINGS: PELVIC BONES: Very heterogeneous bone density. Mixed lytic and sclerotic lesions througho ut. VISUALIZED SPINE: Lower lumbar spondylosis. Disc space narrowing at the lowest 3 visualized levels w ithout fracture. Scattered lesions in the sacrum. HIP(S): Several faint sclerotic lesions in the right hip and proximal femur. More extensive abnormal ity related to the left proximal femur. This includes gracy bone destruction in the inferior femoral neck and intertrochanteric proximal left femur. No discrete fracture line identified, however the b one is significantly compromised in the femoral neck, predisposing to pathologic fracture. PELVIC SOFT TISSUES: Fundal bladder thickening without discrete mass. No pelvic free fluid or adenop athy or gross mass. No evidence of overt urinary obstruction, retroperitoneal adenopathy or aortic a neurysm. EXTRAPELVIC SOFT TISSUES: No inguinal adenopathy or hernia. OTHER: No other significant finding. IMPRESSION: 1. Metastatic disease is confirmed on CT. Mixed lytic and blastic lesions with signific ant destructive lesions in the proximal left femur particularly. This includes compromised bone in t he left femoral neck which predisposes to pathologic fracture,. No discrete fracture line identified currently. TECHNICAL DOCUMENTATION: JOB ID: [id number] Quality ID # [id number]: Final reports with documentation of one or more dose reduction techniques (e.g., Au tomated exposure control, adjustment of the mA and/or kV according to patient size, use of iterative reconstruction technique) 2010 [employer]- All Rights Reserved
[2017-07-13 14:04] VITALS: BP 152/87
--- NOTE | 2017-07-13 14:14 | ER Document Report ---
ED General - General Chief Complaint: Hip Injury Stated Complaint: HEADACHE Time Seen by Provider: 07/13/17 11:21 Mode of Arrival: Ambulatory Information source: Patient Notes: Pt is a 62 year old male who presents to the ER today for left hip pain after "dancing" on ice 3 days ago, but not falling. He states he slipped and "did a little dance, but did not fall" and has been hurting there since. He denies any numbness or tingling, pain anywhere else. He also complains of 5 days of sinus congestion, productive cough, admits to sweating and chills, but denies shortness of breath or wheezing. He hasn't tried anything at home. TRAVEL OUTSIDE OF THE [place] IN LAST 30 DAYS: No - Related Data Allergies/Adverse Reactions: No Known Allergies Allergy (Verified 07/13/17 10:47) Past Medical History - General Information source: Patient - Social History Smoking Status: Unknown if Ever Smoked Chew tobacco use (# tins/day): No Frequency of alcohol use: Occasional Drug Abuse: None Family History: Reviewed & Not Pertinent Patient has suicidal ideation: No Patient has homicidal ideation: No - Past Medical History Cardiac Medical History: Reports: Hx DVT, Hx Hypercholesterolemia, Hx Hypertension, Hx Pulmonary Embolism Denies: Hx Congestive Heart Failure, Hx Heart Attack Pulmonary Medical History: Denies: Hx Asthma, Hx COPD Neurological Medical History: Denies: Hx Seizures Endocrine Medical History: Reports: Hx Diabetes Mellitus Type 2. Denies: Hx Hyperthyroidism, Hx Hypothyroidism Renal/ Medical History: Denies: Hx Peritoneal Dialysis GI Medical History: Denies: Hx Cirrhosis, Hx Gastroesophageal Reflux Disease, Hx Hepatitis Musculoskeltal Medical History: Reports Hx Arthritis Skin Medical History: Denies Hx Eczema, Denies Hx Psoriasis Psychiatric Medical History: Denies: Hx Depression Infectious Medical History: Denies: Hx Hepatitis Past Surgical History: Reports: Hx Abdominal Surgery, Hx Tonsillectomy, Other - Caval filter implant. Review of Systems - Review of Systems Constitutional: See HPI EENT: See HPI Cardiovascular: No symptoms reported Respiratory: See HPI Gastrointestinal: No symptoms reported Genitourinary: No symptoms reported Male Genitourinary: No symptoms reported Musculoskeletal: See HPI Skin: No symptoms reported Hematologic/Lymphatic: No symptoms reported Neurological/Psychological: No symptoms reported Physical Exam - Vital signs Vitals: Temp Pulse Resp BP Pulse Ox 98.8 F 102 H 16 160/94 H 95 07/13/17 10:59 07/13/17 10:59 07/13/17 10:59 07/13/17 10:59 07/13/17 10:59 - Notes Notes: PHYSICAL EXAMINATION: GENERAL: uncomfortable appearing, but in no acute distress. HEAD: Atraumatic, normocephalic. EYES: Pupils equal round and reactive to light, extraocular movements intact, sclera anicteric, conjunctiva are normal. ENT: nares with mucoid discharge, oropharynx erythematous without enlarged tonsils, normal ear canals without foreign body or erythema, TMs pearly mathis with good cone of light, maxillary sinuses tender to palpation NECK: Normal range of motion, supple without lymphadenopathy LUNGS: cough, otherwise CTAB and equal. No wheezes rales or rhonchi. HEART: regular rate and rhythm without murmurs ABDOMEN: Soft, no tenderness. No guarding, no rebound BACK: no vertebral tenderness, normal ROM GI/: no CVA tenderness EXTREMITIES: Normal range of motion but pain in the left hip with weight bearing , nontender to palpation, no pitting edema. No cyanosis. NEUROLOGICAL:cranial nerves grossly intact, normal motor and sensory exam PSYCH: Normal mood, normal affect. SKIN: Warm, Dry, normal turgor, no rashes or lesions noted Course - Re-evaluation Re-evalutation: 07/14/17 19:50 chest x ray negative for any acute pathology. hip x ray reveals lytic lesions and possible femoral neck lucency/fracture. CT pelvis confirms metastatic disease with multiple lytic lesions, extensively in the left femoral neck but no pathologic fracture. Dr. Osborne, oncologist was consulted and states "send him right over to the office, I'll make room for him on my schedule." I did inform patient and his of the results today and the possibility of Multiple Myeloma, they are solemn, but understand and will go straight to oncologist's office on discharge. I will send home with abx for sinus infection and cough medication. - Vital Signs Vital signs: Temp Pulse Resp BP Pulse Ox 98.0 F 83 20 152/87 H 96 07/13/17 14:01 07/13/17 14:01 07/13/17 14:01 07/13/17 14:01 07/13/17 14:01 - Laboratory Laboratory results interpreted by me: 07/13/17 13:52 POC Glucose 47 L Discharge - Discharge Clinical Impression: Hip pain, left, Lytic bone lesion of left femur, Bronchitis Sinusitis Qualifiers: Sinusitis location: unspecified location Chronicity: acute Recurrence: non- recurrent Qualified Code(s): J01.90 - Acute sinusitis, unspecified Condition: Stable Disposition: HOME, SELF-CARE Additional Instructions: Please go to Dr. Osborne's office as soon as her discharge from the emergency department, he is made room for you in his schedule today. Return immediately for any new or worsening symptoms. Follow up with primary care provider, call tomorrow to make followup appointment. Prescriptions: Amoxicillin 500 mg PO TID #30 capsule Cetirizine HCl [Zyrtec 10 mg Tablet] 1 tab PO DAILY #30 tablet D-Methorphan Hb/Prometh HCl [Promethazine-Dm Syrup] 5 ml PO Q8 PRN #120 ml PRN Reason: Hydrocodone/Acetaminophen [[place] 5-325 mg Tablet] 1 tab PO Q4 PRN #20 tablet PRN Reason: Referrals: RAUL GAO DO [Primary Care Provider] - Follow up as needed PRINCE OSBORNE MD [ACTIVE STAFF] - Follow up as needed
== END 2017-07-13 14:30 | disposition home or self-care (01) ==
LOC: ER 10:44
DX: M25.552 Pain in left hip (principal); W18.49XA Other slipping, tripping and stumbling without falling, initial encounter; J01.90 Acute sinusitis, unspecified; J40 Bronchitis, not specified as acute or chronic; M89.8X0 Other specified disorders of bone, multiple sites; R05 Cough; R61 Generalized hyperhidrosis; R68.83 Chills (without fever); I10 Essential (primary) hypertension; E11.9 Type 2 diabetes mellitus without complications
CPT/HCPCS: 71046; 72192; 82962; 99284

== ENCOUNTER → 2017-07-20 | Outpatient (CLI) | payer BC ==
--- NOTE | 2017-07-20 13:20 | RADIOLOGY REPORT (SQ) ---
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 Images reviewed with lung, soft tissue and bone windows. Reconstructed coronal a nd sagittal MPR images reviewed. All images stored on PACS. CT scan of the abdomen and pelvis performed with intravenous and with oral contrastusing helical scan alen technique with dynamic intravenous contrast injection. Images reviewed with lung, soft tissue a nd bone windows. Reconstructed coronal and sagittal MPR images reviewed. Delayed images for evaluat ion of the urinary system also acquired and evaluated. All images stored on PACS. All CT scanners at this facility use dose modulation, iterative reconstruction, and/or weight based d osing when appropriate to reduce radiation dose to as low as reasonably achievable (ALARA). [facility]: Dose Right [facility]: CareDose [facility]: Dose Right [facility]: Teradose 4D [facility]: [employer] RADIATION DOSE: CT Rad equipment meets quality standard of care and radiation dose reduction techniq ues were employed. CTDIvol: 20.0 - 20.0 mGy. DLP: 2892 mGy-cm. . LIMITATIONS: None. FINDINGS: CHEST: LUNGS AND PLEURA: No opacities, nodules, masses. No pneumothorax. No effusions. HILAR AND MEDIASTINAL STRUCTURES: No identified masses or abnormal nodes. HEART AND VASCULAR STRUCTURES: No aneurysm or dissection. No central pulmonary emboli. No pericardi al effusion. HARDWARE: None. THYROID AND OTHER SOFT TISSUES: No masses. No adenopathy. BONES: Multiple lytic lesions are present throughout the ribs, thoracic spine, sternum. Heavy burden of disease is present at T10 with a vertebra plana compression deformity. There is minimal ventral epidural tumor at the T10 level without high-grade central stenosis. OTHER: No other significant finding. ABDOMEN AND PELVIS: LIVER: Normal size. No masses. No dilated ducts. SPLEEN: Normal size. No focal lesions. PANCREAS: No masses. No significant calcifications. No adjacent inflammation or peripancreatic fluid collections. Pancreatic duct not dilated. GALLBLADDER: No identified stones by CT criteria. No inflammatory changes to suggest cholecystitis. ADRENAL GLANDS: No significant masses or asymmetry. RIGHT KIDNEY AND URETER: No solid masses. No significant calcification. No hydronephrosis or hydroure ter. LEFT KIDNEY AND URETER: No solid masses. No significant calcification. No hydronephrosis or hydrouret er. AORTA AND VESSELS: No aneurysm. No dissection. Renal arteries, SMA, celiac without stenosis. IVC kevan ter in place RETROPERITONEUM: No retroperitoneal adenopathy, hemorrhage or masses. BOWEL AND PERITONEAL CAVITY: No masses or inflammatory changes. No free fluid or peritoneal masses. APPENDIX: Normal. ABDOMINAL WALL: No masses. No hernias. BONES: There are multiple tiny lytic lesions scattered throughout the lumbar spine bony pelvis and pr oximal femurs. There is a moderate to heavy burden of disease in the left proximal femur intertrocha nteric region on coronal reconstruction images 70 through the, putting the patient at risk for pathol ogic fracture. PELVIS: No other significant finding. Normal size prostate. Bladder, rectum unremarkable. No adeno preston or pelvic masses. IMPRESSION: Diffuse bony disease, with a vertebra plana deformity at T10 and minimal ventral epidura l tumor at this level. Heavy burden of lytic disease in the left proximal femur, puts the patient at risk for pathologic fra cture Otherwise unremarkable CT scan of the chest abdomen pelvis with IV and oral contrast TECHNICAL DOCUMENTATION: JOB ID: [id number] Quality ID # 436: Final reports with documentation of one or more dose reduction techniques (e.g., Au tomated exposure control, adjustment of the mA and/or kV according to patient size, use of iterative reconstruction technique) 2010 [employer]- All Rights Reserved
== END ==
LOC: RAD 08:29
PROVIDERS: ATTEND Internal Medicine
DX: C41.4 Malignant neoplasm of pelvic bones, sacrum and coccyx (principal)
CPT/HCPCS: 71260; 74177

== ENCOUNTER 2017-11-09 08:47 | Day surgery (SDC) | payer BC ==
[2017-11-09 09:30] LABS: HEMATOCRIT 31.7 % (37.9-51.0); HEMOGLOBIN 10.7 g/dL (13.5-17.0); MEAN CORPUSCULAR HEMOGLOBIN 32.5 pg (27.0-33.4); MEAN CORPUSCULAR HGB CONC 33.6 g/dL (32.0-36.0); MEAN CORPUSCULAR VOLUME 97 fl (80-97); PLATELET COUNT 190 10^3/uL (150-450); RED BLOOD COUNT 3.28 10^6/uL (4.35-5.55); WHITE BLOOD COUNT 4.7 10^3/uL (4.0-10.5)
[2017-11-09 09:46] LABS: BLOOD UREA NITROGEN 17 mg/dL (7-20)
[2017-11-09 10:05] LABS: INTERNATIONAL RATION (INR) 0.96; PARTIAL THROMBOPLASTIN TIME 25.4 SEC (23.5-35.8); PROTHROMBIN TIME 13.3 SEC (11.4-15.4)
[2017-11-09] MEDS ORDERED: FENTANYL CITRATE INJ/PF 100 MCG/2 ML AMPUL ONE (11:26)
[2017-11-09] MEDS ORDERED: LIDOCAINE 1% INJ-PF (10 MG/ML) 30 ML SDV ONE (11:26)
[2017-11-09] MEDS ORDERED: MIDAZOLAM 2 MG/2 ML INJ ONE (11:26)
[2017-11-09] MEDS ORDERED: OXYCODONE HCL IR 5 MG TABLET PO PRN (13:21)
--- NOTE | 2017-11-09 13:22 | RADIOLOGY REPORT (SQ) ---
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 TECHNIQUE: CT guided biopsy of the right iliac crest bone marrow performed with conscious sedation. CT Fluoroscopy Time: [address] scanners at this facility use dose modulation, iterative reconstruction, and/or weight based d osing when appropriate to reduce radiation dose to as low as reasonably achievable (ALARA). [facility]: Dose Right [facility]: CareDose [facility]: Dose Right [facility]: Teradose 4D [facility]: [employer] RADIATION DOSE: CT Rad equipment meets quality standard of care and radiation dose reduction techniq ues were employed. CTDIvol: 4.0 - 20.3 mGy. DLP: 945 mGy-cm.mGy. FINDINGS: The procedure was discussed with the patient and the patient agreed to the procedure. Prio r to the procedure, a time out was performed to verify the patient's identity and planned procedure. IV sedation was administered and physician direction by the registered nurse using 1 milligrams of Ve rsed and 50 micrograms of fentanyl. Physiologic monitoring was provided before, during, and after sed ation. The total sedation time was 30 minutes. Documentation face to face time, the performing proceduralist, spent monitoring the patient: [address] scanning was performed to localize the percutaneous site for the biopsy approach. After sterile skin prep and local lidocaine for skin and deep tissue anesthesia, a coaxial biopsy nee dle was used to obtain a bone marrow aspirate, and a bone marrow core of tissue. The biopsy tissue wa s received by [facility] lab to be sent out for evaluation. There were no immediate complications. Pathology is pending at the time of dictation. IMPRESSION: CT GUIDED ASPIRATE AND CORE BIOPSY OF THE RIGHT POSTERIOR ILIAC CREST BONE MARROW PERFOR MED WITHOUT IMMEDIATE COMPLICATION. PATHOLOGY PENDING. IV CONSCIOUS SEDATION WITHOUT COMPLICATION. COMMENT: Quality ID 145: Final reports for procedures using fluoroscopy that document radiation exp osure indices, or exposure time and number of fluorographic images (if radiation exposure indices are not available) Patient medication list reviewed: Yes- Quality ID# [id number]:Eligible professional attests to documenting i n the medical record they obtained, updated, or reviewed the patient's current medications.. TECHNICAL DOCUMENTATION: JOB ID: [id number] Quality ID# 436: Final reports with documentation of one or more dose reduction techniques (e.g., Aut omated exposure control, adjustment of the mA and/or kV according to patient size, use of iterative r econstruction technique) 2010 [employer]- All Rights Reserved Reading location - IP/workstation name: [facility]
--- NOTE | 2017-11-09 13:22 | RADIOLOGY REPORT (SQ) ---
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 TECHNIQUE: CT guided biopsy of the right iliac crest bone marrow performed with conscious sedation. CT Fluoroscopy Time: [address] scanners at this facility use dose modulation, iterative reconstruction, and/or weight based d osing when appropriate to reduce radiation dose to as low as reasonably achievable (ALARA). [facility]: Dose Right [facility]: CareDose [facility]: Dose Right [facility]: Teradose 4D [facility]: [employer] RADIATION DOSE: CT Rad equipment meets quality standard of care and radiation dose reduction techniq ues were employed. CTDIvol: 4.0 - 20.3 mGy. DLP: 945 mGy-cm.mGy. FINDINGS: The procedure was discussed with the patient and the patient agreed to the procedure. Prio r to the procedure, a time out was performed to verify the patient's identity and planned procedure. IV sedation was administered and physician direction by the registered nurse using 1 milligrams of Ve rsed and 50 micrograms of fentanyl. Physiologic monitoring was provided before, during, and after sed ation. The total sedation time was 30 minutes. Documentation face to face time, the performing proceduralist, spent monitoring the patient: [address] scanning was performed to localize the percutaneous site for the biopsy approach. After sterile skin prep and local lidocaine for skin and deep tissue anesthesia, a coaxial biopsy nee dle was used to obtain a bone marrow aspirate, and a bone marrow core of tissue. The biopsy tissue wa s received by [facility] lab to be sent out for evaluation. There were no immediate complications. Pathology is pending at the time of dictation. IMPRESSION: CT GUIDED ASPIRATE AND CORE BIOPSY OF THE RIGHT POSTERIOR ILIAC CREST BONE MARROW PERFOR MED WITHOUT IMMEDIATE COMPLICATION. PATHOLOGY PENDING. IV CONSCIOUS SEDATION WITHOUT COMPLICATION. COMMENT: Quality ID 145: Final reports for procedures using fluoroscopy that document radiation exp osure indices, or exposure time and number of fluorographic images (if radiation exposure indices are not available) Patient medication list reviewed: Yes- Quality ID# 130:Eligible professional attests to documenting i n the medical record they obtained, updated, or reviewed the patient's current medications.. TECHNICAL DOCUMENTATION: JOB ID: [id number] Quality ID# 436: Final reports with documentation of one or more dose reduction techniques (e.g., Aut omated exposure control, adjustment of the mA and/or kV according to patient size, use of iterative r econstruction technique) 2010 [employer]- All Rights Reserved Reading location - IP/workstation name: [facility]
[2017-11-09 14:38] VITALS: BP 117/66
== END 2017-11-09 14:41 | disposition home or self-care (01) ==
LOC: RAD 08:47
PROVIDERS: ATTEND Internal Medicine
DX: C90.00 Multiple myeloma not having achieved remission (principal)
CPT/HCPCS: 36415; 82962; 84520; 82565; 85027; 85610; 85730; 38221; 77012; J2250; J3010; J3490

== ENCOUNTER 2018-04-26 08:47 | Day surgery (SDC) | payer OTHER, BC ==
[2018-04-26 10:22] LABS: HEMATOCRIT 30.4 % (37.9-51.0); HEMOGLOBIN 10.5 g/dL (13.5-17.0); MEAN CORPUSCULAR HEMOGLOBIN 33.7 pg (27.0-33.4); MEAN CORPUSCULAR HGB CONC 34.4 g/dL (32.0-36.0); MEAN CORPUSCULAR VOLUME 98 fl (80-97); PLATELET COUNT 247 10^3/uL (150-450); RED BLOOD COUNT 3.11 10^6/uL (4.35-5.55); RED CELL DISTRIBUTION WIDTH 14.3 % (11.5-14.0); WHITE BLOOD COUNT 4.5 10^3/uL (4.0-10.5)
[2018-04-26 10:25] LABS: INTERNATIONAL RATION (INR) 0.98; PROTHROMBIN TIME 13.5 SEC (11.4-15.4)
[2018-04-26 10:26] LABS: PARTIAL THROMBOPLASTIN TIME 27.6 SEC (23.5-35.8)
[2018-04-26 10:41] LABS: BLOOD UREA NITROGEN 13 mg/dL (7-20)
[2018-04-26] MEDS ORDERED: MIDAZOLAM 2 MG/2 ML INJ ONE (10:55)
[2018-04-26] MEDS ORDERED: FENTANYL CITRATE INJ/PF 100 MCG/2 ML AMPUL ONE (10:55)
[2018-04-26] MEDS ORDERED: LIDOCAINE 1% INJ-PF (10 MG/ML) 30 ML SDV ONE (10:55)
[2018-04-26 14:03] VITALS: BP 110/63
--- NOTE | 2018-04-26 15:06 | RADIOLOGY REPORT (SQ) ---
EXAM DESCRIPTION: CT BIOPSY BONE MARROW, NEEDLE; CT NEEDLE PLACEMENT COMPLETED DATE/TIME: 04/26/2018 11:40 am REASON FOR STUDY: MULTIPLE MYELOMA, NOT ACHIEVING REMISSION; MULTIPLE MYELOMA, NOT ACHIEVING REMISSI ON, BONE MARROW BIOPSY C90.00 MULTIPLE MYELOMA NOT HAVING ACHIEVED REMISSION COMPARISON: None. TECHNIQUE: CT guided biopsy of the right iliac crest bone marrow performed with conscious sedation. CT Fluoroscopy Time: 2.[address] scanners at this facility use dose modulation, iterative reconstruction, and/or weight based d osing when appropriate to reduce radiation dose to as low as reasonably achievable (ALARA). [facility]: Dose Right [facility]: CareDose [facility]: Dose Right [facility]: Teradose 4D [facility]: [employer] RADIATION DOSE: 36 mGy. FINDINGS: After obtaining informed consent and explaining the risks and benefits of conscious sedati on,the patient agreed to the procedure. Prior to the procedure, a time out was performed to verify th e patient's identity and planned procedure. IV conscious sedation was administered and physician direction by the registered nurse using 1 millig orlando of Versed and 100 micrograms of fentanyl. Physiologic monitoring was provided before, during, an d after sedation. The total sedation time was 38 minutes. Documentation face to face time, the performing proceduralist, spent monitoring the patient: [address] scanning was performed to localize the percutaneous site for the biopsy approach. After sterile skin prep and local lidocaine for skin and deep tissue anesthesia, a coaxial biopsy nee dle was used to obtain a bone marrow aspirate, and a bone marrow core of tissue. The biopsy tissue wa s received by [facility] lab to be sent out for evaluation. There were no immediate complications. Pathology is pending at the time of dictation. IMPRESSION: CT GUIDED ASPIRATE AND CORE BIOPSY OF THE RIGHT POSTERIOR ILIAC CREST BONE MARROW PERFOR MED WITHOUT IMMEDIATE COMPLICATION. PATHOLOGY PENDING. IV CONSCIOUS SEDATION WITHOUT COMPLICATION. COMMENT: Quality ID 145: Final reports for procedures using fluoroscopy that document radiation exp osure indices, or exposure time and number of fluorographic images (if radiation exposure indices are not available) Patient medication list reviewed: Yes- Quality ID# 130:Eligible professional attests to documenting i n the medical record they obtained, updated, or reviewed the patient's current medications.. TECHNICAL DOCUMENTATION: JOB ID: [id number] Quality ID# 436: Final reports with documentation of one or more dose reduction techniques (e.g., Aut omated exposure control, adjustment of the mA and/or kV according to patient size, use of iterative r econstruction technique) 2010 [employer]- All Rights Reserved Reading location - IP/workstation name: [facility]-[email or web address]
--- NOTE | 2018-04-26 15:06 | RADIOLOGY REPORT (SQ) ---
EXAM DESCRIPTION: CT BIOPSY BONE MARROW, NEEDLE; CT NEEDLE PLACEMENT COMPLETED DATE/TIME: 04/26/2018 11:40 am REASON FOR STUDY: MULTIPLE MYELOMA, NOT ACHIEVING REMISSION; MULTIPLE MYELOMA, NOT ACHIEVING REMISSI ON, BONE MARROW BIOPSY C90.00 MULTIPLE MYELOMA NOT HAVING ACHIEVED REMISSION COMPARISON: None. TECHNIQUE: CT guided biopsy of the right iliac crest bone marrow performed with conscious sedation. CT Fluoroscopy Time: 2.[address] scanners at this facility use dose modulation, iterative reconstruction, and/or weight based d osing when appropriate to reduce radiation dose to as low as reasonably achievable (ALARA). [facility]: Dose Right [facility]: CareDose [facility]: Dose Right [facility]: Teradose 4D [facility]: [email or web address] RADIATION DOSE: 36 mGy. FINDINGS: After obtaining informed consent and explaining the risks and benefits of conscious sedati on,the patient agreed to the procedure. Prior to the procedure, a time out was performed to verify th e patient's identity and planned procedure. IV conscious sedation was administered and physician direction by the registered nurse using 1 millig orlando of Versed and 100 micrograms of fentanyl. Physiologic monitoring was provided before, during, an d after sedation. The total sedation time was 38 minutes. Documentation face to face time, the performing proceduralist, spent monitoring the patient: [address] scanning was performed to localize the percutaneous site for the biopsy approach. After sterile skin prep and local lidocaine for skin and deep tissue anesthesia, a coaxial biopsy nee dle was used to obtain a bone marrow aspirate, and a bone marrow core of tissue. The biopsy tissue wa s received by [facility] lab to be sent out for evaluation. There were no immediate complications. Pathology is pending at the time of dictation. IMPRESSION: CT GUIDED ASPIRATE AND CORE BIOPSY OF THE RIGHT POSTERIOR ILIAC CREST BONE MARROW PERFOR MED WITHOUT IMMEDIATE COMPLICATION. PATHOLOGY PENDING. IV CONSCIOUS SEDATION WITHOUT COMPLICATION. COMMENT: Quality ID 145: Final reports for procedures using fluoroscopy that document radiation exp osure indices, or exposure time and number of fluorographic images (if radiation exposure indices are not available) Patient medication list reviewed: Yes- Quality ID# 130:Eligible professional attests to documenting i n the medical record they obtained, updated, or reviewed the patient's current medications.. TECHNICAL DOCUMENTATION: JOB ID: [id number] Quality ID# 436: Final reports with documentation of one or more dose reduction techniques (e.g., Aut omated exposure control, adjustment of the mA and/or kV according to patient size, use of iterative r econstruction technique) 2010 [employer]- All Rights Reserved Reading location - IP/workstation name: [facility]-[email or web address]
== END 2018-04-26 14:03 | disposition home or self-care (01) ==
LOC: RAD 08:47
PROVIDERS: ATTEND Internal Medicine
DX: C90.00 Multiple myeloma not having achieved remission (principal); Z79.899 Other long term (current) drug therapy; Z79.01 Long term (current) use of anticoagulants
CPT/HCPCS: 36415; 82962; 84520; 82565; 85027; 85610; 85730; 38221; 77012; J2250; J3010; J3490

== ENCOUNTER → 2018-06-01 | Outpatient (CLI) | payer OTHER ==
--- NOTE | 2018-06-01 16:12 | RADIOLOGY REPORT (SQ) ---
EXAM DESCRIPTION: BONE SURVEY COMPLETE COMPLETED DATE/TIME: 06/01/2018 3:17 pm REASON FOR STUDY: MULTIPLE MYELOMA C90.00 MULTIPLE MYELOMA NOT HAVING ACHIEVED REMISSION COMPARISON: None. TECHNIQUE: Images of the axial and proximal appendicular skeleton are obtained, along with lateral s kull and frontal chest films. LIMITATIONS: None. FINDINGS: AP CHEST: No bony findings. Lungs are clear. LATERAL SKULL: Several very small lytic lesions. AP BOTH HUMERI: Small lytic lesions in the proximal right and left humerus. TWO-VIEW LUMBAR SPINE: No worrisome bone lesions. TWO-VIEW THORACIC SPINE: Limited visualization. There is collapse of the T10 vertebral body. AP PELVIS: Small lytic lesions, particularly in the ischial tuberosities and superior pubic ramus. AP BOTH FEMURS: Numerous lytic lesions in the proximal right and left femur. OTHER: No other significant finding. IMPRESSION: NUMEROUS LYTIC LESIONS SECONDARY TO MULTIPLE MYELOMA. TECHNICAL DOCUMENTATION: JOB ID: [id number] [employer]- All Rights Reserved Reading location - IP/workstation name: [facility]-RR
== END ==
LOC: RAD 14:30
PROVIDERS: ATTEND Internal Medicine
DX: C90.00 Multiple myeloma not having achieved remission (principal)
CPT/HCPCS: 77075

== ENCOUNTER → 2019-05-21 | Outpatient (CLI) | payer OTHER ==
--- NOTE | 2019-05-21 15:56 | RADIOLOGY REPORT (SQ) ---
EXAM DESCRIPTION: BONE SURVEY COMPLETE COMPLETED DATE/TIME: 05/21/2019 2:55 pm REASON FOR STUDY: C90.00 MULTIPLE MYELOMA NOT HAVING ACHIEVED REMISSION C90.00 MULTIPLE MYELOMA NOT HAVING ACHIEVED REMISSION COMPARISON: None. TECHNIQUE: Images of the axial and proximal appendicular skeleton are obtained, along with lateral s kull and frontal chest films. LIMITATIONS: None. FINDINGS: AP CHEST: No bony findings. Lungs are clear. LATERAL SKULL: There are some very small lytic lesions. No evidence of significant change. AP BOTH HUMERI: Small lytic lesions unchanged. TWO-VIEW LUMBAR SPINE: No worrisome bone lesions. TWO-VIEW THORACIC SPINE: No worrisome bone lesions. AP PELVIS: Small lytic lesions in the ischia and in the superior pubic rami. AP BOTH FEMURS: Small lytic lesions. OTHER: No other significant finding. IMPRESSION: Multiple small lytic lesions consistent with the history of multiple myeloma. TECHNICAL DOCUMENTATION: JOB ID: [id number] [employer]- All Rights Reserved Reading location - IP/workstation name: [email or web address]
== END ==
LOC: RAD 13:50
PROVIDERS: ATTEND Internal Medicine
DX: C90.00 Multiple myeloma not having achieved remission (principal)
CPT/HCPCS: 77075

== ENCOUNTER 2019-05-22 09:20 | Day surgery (SDC) | payer OTHER ==
[2019-05-22] MEDS ORDERED: FENTANYL CITRATE INJ/PF 100 MCG/2 ML AMPUL ONE (10:32)
[2019-05-22] MEDS ORDERED: MIDAZOLAM 2 MG/2 ML INJ ONE (10:32)
[2019-05-22 11:15] LABS: HEMATOCRIT 31.3 % (37.9-51.0); HEMOGLOBIN 10.6 g/dL (13.5-17.0); MEAN CORPUSCULAR HEMOGLOBIN 32.5 pg (27.0-33.4); MEAN CORPUSCULAR HGB CONC 33.8 g/dL (32.0-36.0); MEAN CORPUSCULAR VOLUME 96 fl (80-97); PLATELET COUNT 175 10^3/uL (150-450); RED BLOOD COUNT 3.25 10^6/uL (4.35-5.55); RED CELL DISTRIBUTION WIDTH 14.7 % (11.5-14.0); WHITE BLOOD COUNT 3.4 10^3/uL (4.0-10.5)
[2019-05-22 11:22] LABS: INTERNATIONAL RATION (INR) 1.16; PARTIAL THROMBOPLASTIN TIME 23.6 SEC (23.5-35.8); PROTHROMBIN TIME 14.9 SEC (11.4-15.4)
[2019-05-22 11:37] LABS: BLOOD UREA NITROGEN 13 mg/dL (7-20)
--- NOTE | 2019-05-22 12:17 | RADIOLOGY REPORT (SQ) ---
EXAM DESCRIPTION: CT BIOPSY BONE MARROW, NEEDLE; CT NEEDLE PLACEMENT COMPLETED DATE/TIME: 05/22/2019 11:44 am; 05/22/2019 11:48 am REASON FOR STUDY: MULTIPLE MYELOMA NOT HAVING ACHIEVED REMISSION C90.00 MULTIPLE MYELOMA NOT HAVING ACHIEVED REMISSION COMPARISON: 05/21/2019 TECHNIQUE: CT guided biopsy of the right iliac crest bone marrow performed with conscious sedation. CT Fluoroscopy Time: [address] scanners at this facility use dose modulation, iterative reconstruction, and/or weight based d osing when appropriate to reduce radiation dose to as low as reasonably achievable (ALARA). [facility]: Dose Right [facility]: CareDose [facility]: Dose Right [facility]: Teradose 4D [facility]: [employer] RADIATION DOSE: mGy. FINDINGS: After obtaining informed consent and explaining the risks and benefits of conscious sedati on,the patient agreed to the procedure. Prior to the procedure, a time out was performed to verify th e patient's identity and planned procedure. IV conscious sedation was administered and physician direction by the registered nurse using 1 millig orlando of Versed and 50 micrograms of fentanyl. Physiologic monitoring was provided before, during, and after sedation. The total sedation time was 30 minutes. Documentation face to face time, the performing proceduralist, spent monitoring the patient: [address] scanning was performed to localize the percutaneous site for the biopsy approach. After sterile skin prep and local lidocaine for skin and deep tissue anesthesia, a coaxial biopsy nee dle was used to obtain a bone marrow aspirate, and a bone marrow core of tissue. The biopsy tissue wa s received by Dr. Eaton's nurse to be sent out for evaluation. There were no immediate complication s. Pathology is pending at the time of dictation. IMPRESSION: CT GUIDED ASPIRATE AND CORE BIOPSY OF THE RIGHT POSTERIOR ILIAC CREST BONE MARROW PERFOR MED WITHOUT IMMEDIATE COMPLICATION. PATHOLOGY PENDING. IV CONSCIOUS SEDATION WITHOUT COMPLICATION. COMMENT: Quality ID 145: Final reports for procedures using fluoroscopy that document radiation exp osure indices, or exposure time and number of fluorographic images (if radiation exposure indices are not available) Patient medication list reviewed: Yes- Quality ID# 130:Eligible professional attests to documenting i n the medical record they obtained, updated, or reviewed the patient's current medications.. TECHNICAL DOCUMENTATION: JOB ID: [id number] Quality ID# 436: Final reports with documentation of one or more dose reduction techniques (e.g., Aut omated exposure control, adjustment of the mA and/or kV according to patient size, use of iterative r econstruction technique) 2010 [employer]- All Rights Reserved Reading location - IP/workstation name: [email or web address]
--- NOTE | 2019-05-22 12:17 | RADIOLOGY REPORT (SQ) ---
EXAM DESCRIPTION: CT BIOPSY BONE MARROW, NEEDLE; CT NEEDLE PLACEMENT COMPLETED DATE/TIME: 05/22/2019 11:44 am; 05/22/2019 11:48 am REASON FOR STUDY: MULTIPLE MYELOMA NOT HAVING ACHIEVED REMISSION C90.00 MULTIPLE MYELOMA NOT HAVING ACHIEVED REMISSION COMPARISON: 05/21/2019 TECHNIQUE: CT guided biopsy of the right iliac crest bone marrow performed with conscious sedation. CT Fluoroscopy Time: [address] scanners at this facility use dose modulation, iterative reconstruction, and/or weight based d osing when appropriate to reduce radiation dose to as low as reasonably achievable (ALARA). [facility]: Dose Right [facility]: CareDose [facility]: Dose Right [facility]: Teradose 4D [facility]: [employer] RADIATION DOSE: mGy. FINDINGS: After obtaining informed consent and explaining the risks and benefits of conscious sedati on,the patient agreed to the procedure. Prior to the procedure, a time out was performed to verify th e patient's identity and planned procedure. IV conscious sedation was administered and physician direction by the registered nurse using 1 millig orlando of Versed and 50 micrograms of fentanyl. Physiologic monitoring was provided before, during, and after sedation. The total sedation time was 30 minutes. Documentation face to face time, the performing proceduralist, spent monitoring the patient: [address] scanning was performed to localize the percutaneous site for the biopsy approach. After sterile skin prep and local lidocaine for skin and deep tissue anesthesia, a coaxial biopsy nee dle was used to obtain a bone marrow aspirate, and a bone marrow core of tissue. The biopsy tissue wa s received by Dr. Eaton's nurse to be sent out for evaluation. There were no immediate complication s. Pathology is pending at the time of dictation. IMPRESSION: CT GUIDED ASPIRATE AND CORE BIOPSY OF THE RIGHT POSTERIOR ILIAC CREST BONE MARROW PERFOR MED WITHOUT IMMEDIATE COMPLICATION. PATHOLOGY PENDING. IV CONSCIOUS SEDATION WITHOUT COMPLICATION. COMMENT: Quality ID 145: Final reports for procedures using fluoroscopy that document radiation exp osure indices, or exposure time and number of fluorographic images (if radiation exposure indices are not available) Patient medication list reviewed: Yes- Quality ID# [id number]:Eligible professional attests to documenting i n the medical record they obtained, updated, or reviewed the patient's current medications.. TECHNICAL DOCUMENTATION: JOB ID: [id number] Quality ID# 436: Final reports with documentation of one or more dose reduction techniques (e.g., Aut omated exposure control, adjustment of the mA and/or kV according to patient size, use of iterative r econstruction technique) 2010 [employer]- All Rights Reserved Reading location - IP/workstation name: [email or web address]
[2019-05-22 13:27] VITALS: BP 107/64
== END 2019-05-22 13:50 | disposition home or self-care (01) ==
LOC: RAD 09:20
PROVIDERS: ATTEND Internal Medicine
DX: C90.00 Multiple myeloma not having achieved remission (principal)
CPT/HCPCS: 36415; 82962; 84520; 82565; 85027; 85610; 85730; 38221; 77012; J2250; J3010

== ENCOUNTER 2019-07-23 06:11 | Day surgery (SDC) | payer OTHER ==
[~2019-07-23 06:11] MED LIST: CEFAZOLIN 1 GM/D5W RTU 1 GM/50 ML RTUPB IV ONE; CEFAZOLIN 1 GM/D5W RTU 1 GM/50 ML RTUPB IV PRN
[2019-07-23] MEDS ORDERED: BACITRACIN INJ 50,000 UNIT VIAL ONE (07:41)
[2019-07-23] MEDS ORDERED: LIDOCAINE 0.5% INJ-PF (5 MG/ML) 50 ML SDV ONE (07:41)
[2019-07-23 07:43] LABS: HEMATOCRIT 23.2 % (37.9-51.0); MEAN CORPUSCULAR HGB CONC 34.5 g/dL (32.0-36.0); MEAN CORPUSCULAR VOLUME 96 fl (80-97); PLATELET COUNT 189 10^3/uL (150-450); RED BLOOD COUNT 2.42 10^6/uL (4.35-5.55); RED CELL DISTRIBUTION WIDTH 15.9 % (11.5-14.0); WHITE BLOOD COUNT 1.7 10^3/uL (4.0-10.5)
[2019-07-23 07:57] LABS: ANION GAP 7 (5-19); BLOOD UREA NITROGEN 19 mg/dL (7-20); CALCIUM 7.8 mg/dL (8.4-10.2); CARBON DIOXIDE 28 mmol/L (22-30); CHLORIDE 101 mmol/L (98-107); GLUCOSE 123 mg/dL (75-110); POTASSIUM 4.2 mmol/L (3.6-5.0)
[2019-07-23] MEDS ORDERED: MIDAZOLAM 2 MG/2 ML INJ ONE (08:05)
[2019-07-23] MEDS ORDERED: FENTANYL CITRATE INJ/PF 100 MCG/2 ML AMPUL ONE (08:05)
[2019-07-23 08:24] LABS: ABSOLUTE LYMPHOCYTES# (MANUAL) 0.4 10^3/uL (0.5-4.7); ABSOLUTE MONOCYTES # (MANUAL) 0.3 10^3/uL (0.1-1.4); ANISOCYTOSIS SLIGHT; BASOPHILS % (MANUAL) 0 % (0-2); BURR CELLS SLIGHT; EOSINOPHILS % (MANUAL) 2 % (0-6); LYMPHOCYTES % (MANUAL) 24 % (13-45); MONOCYTES % (MANUAL) 16 % (3-13); NUCLEATED RED BLOOD CELLS 6 /100 WBC (0); PLATELET COMMENT ADEQUATE; POLYCHROMASIA SLIGHT; SEGMENTED NEUTROPHILS % (MAN) 58 % (42-78); TEAR DROP CELLS SLIGHT; TOTAL CELLS COUNTED 50
--- NOTE | 2019-07-23 08:34 | RADIOLOGY REPORT (SQ) ---
EXAM DESCRIPTION: CHEST SINGLE VIEW COMPLETED DATE/TIME: 07/23/2019 7:18 am REASON FOR STUDY: preop COMPARISON: PA and lateral views of the chest from 07/13/2017. EXAM PARAMETERS: NUMBER OF VIEWS: One view. TECHNIQUE: An AP view of the chest was obtained. RADIATION DOSE: NA LIMITATIONS: None. FINDINGS: LUNGS AND PLEURA: Low inspiratory lung volumes without a superimposed consolidation, pleur al effusion or pneumothorax. MEDIASTINUM AND HILAR STRUCTURES: No mediastinal or hilar contour abnormality. HEART AND VASCULAR STRUCTURES: The cardiac silhouette and pulmonary vasculature are within normal ann its given the low inspiratory lung volumes. BONES: No acute findings. HARDWARE: None in the chest. OTHER: No other finding. IMPRESSION: Low inspiratory lung volumes without a superimposed consolidation, pleural effusion or p neumothorax. TECHNICAL DOCUMENTATION: JOB ID: [id number] [employer]- All Rights Reserved Reading location - IP/workstation name: [email or web address]
--- NOTE | 2019-07-23 13:20 | Discharge Summary ---
Discharge Summary (SDC) - Discharge Final Diagnosis: #1 multiple myeloma #2 diabetes #3 hypertension Date of Surgery: 07/23/19 Discharge Date: 07/23/19 Condition: Good Treatment or Instructions: Discharge home [after recovery per ASU criteria]. Diet , diabetic,as tolerated, when fully awake advance as tolerated. Activities within moderation encouraged. Follow up in my office by appointment in about [1 week]. Call for appointment. Leave wounds [covered], [keep clean and dry, until office visit in 1 week]. Hold of on school/work [until evaluation in office]. Meds per med rec. May shower [in 48 hrs], [try to keep operated area as dry as possible]. [facility]errals: [facility] [[facility]] - Discharge Diet: As Tolerated Respiratory Treatments at Home: Deep Breathing/Coughing Discharge Activity: Activity As Tolerated Report the Following to Your Physician Immediately: Shortness of Breath, Unusual Bleeding
--- NOTE | 2019-07-23 13:24 | Operative Report ---
Operative Report DATE OF SURGERY: 07/23/19 PREOPERATIVE DIAGNOSIS: #1 multiple myeloma. #2 diabetes. #3 hypertension POSTOPERATIVE DIAGNOSIS: #1 multiple myeloma. #2 diabetes. #3 hypertension OPERATION: 1. Ultrasound evaluation of the right internal jugular vein. 2. Insertion of Port-A-Cath via real-time ultrasound-guided access in the right internal jugular vein. 3. Angiogram and interpretation. SURGEON: ADELA PATTON DIRECTOR CLINICAL PHARMACOLOGY: None. ANESTHESIA: Moderate Sedation TISSUE REMOVED OR ALTERED: Not applicable. COMPLICATIONS: None. ESTIMATED BLOOD LOSS: 5 mL. INTRAOPERATIVE FINDINGS: Of a large right internal jugular vein easily 2 cm in diameter. Satisfactory and safe access under real-time ultrasound guidance. Good position of the port with easy egress of blood and ingress of heparinized solution. Final x-ray satisfactory with hardware properly positioned, no untoward findings. Contrast study showed smooth flow of contrast through the right atrium and ventricle. PROCEDURE: After obtaining informed consent, the patient was taken to the [facility] and positioned supine. The [right] neck and chest were prepared with chlorhexidine and draped out with sterile linen. After the " universal timeout", in which it was verified that the patient continued to receive antibiotic, the procedure commenced. A steriley sheathed ultrasound probe was used to evaluate the [right] internal jugular vein. Local anesthesia was infiltrated adjacent to the probe. Access into the [right] internal jugular vein was obtained using a micropuncture needle, followed by micropuncture wire and then a micropuncture catheter. This was followed by introduction of a 0.035 guidewire the tip of which was placed down into the inferior vena cava . The port sites was marked , locally anesthetized and incision made. Dissection now proceeded to the deep subcutaneous subcutaneous tissues so that a pocket for the port was made. Meticulous hemostasis was secured and the catheter was tunneled between the 2 incisions. Proximally, the catheter was now positioned using a peel-away sheath. Distally the catheter was tailored to an appropriate length and then mated to the port using the contained fixating device. The port was now placed in the pocket and the catheter optimally positioned. The port was accessed with a Grider needle and an angiogram done under digital subtraction. The findings as dictated. With adequate and satisfactory positioning, the lumen of the chamber were irrigated with heparinized solution. The wounds were now closed using interrupted 3-0 PDS to the subcutaneous tissues and a continuous subcuticular suture of 4-0 Monocryl to the skin. These are reinforced with Steri-Strips over benzoin and then dressings applied. Time: 0.5 minute. Dose: 12.47 m Gy Contrast: 5 Mls. Isovue 300. Copies of the dictated operative report for Dr. Adela Hernandez MD.
[2019-07-23 15:04] VITALS: BP 128/66
--- NOTE | 2019-07-24 11:11 | RADIOLOGY REPORT (SQ) ---
EXAM DESCRIPTION: PORTACATH INSERTION COMPLETED DATE/TIME: 07/23/2019 1:07 pm REASON FOR STUDY: MULTIPLE MYELOMA C90.00 C90.00 MULTIPLE MYELOMA NOT HAVING ACHIEVED REMISSION COMPARISON: None. FLUOROSCOPY TIME: 0.5 minutes. 11 images saved to PACS. TECHNIQUE: Intra-operative images acquired during surgical procedure to evaluate progress. NUMBER OF IMAGES: 11 images. LIMITATIONS: None. FINDINGS: Images of the chest acquired during port placement. IMPRESSION: IMAGE(S) OBTAINED DURING PROCEDURE. COMMENT: Quality ID [id number]: Final reports for procedures using fluoroscopy that document radiation exp osure indices, or exposure time and number of fluorographic images (if radiation exposure indices are not available) Please consult full operative report of the attending physician for description of the procedure. TECHNICAL DOCUMENTATION: JOB ID: [id number] [employer]- All Rights Reserved Reading location - IP/workstation name: [email or web address]
== END 2019-07-23 14:50 | disposition home or self-care (01) ==
LOC: CCL 06:11
PROVIDERS: ATTEND Surgery
DX: C90.00 Multiple myeloma not having achieved remission (principal); E11.9 Type 2 diabetes mellitus without complications; I10 Essential (primary) hypertension; Z86.718 Personal history of other venous thrombosis and embolism; Z79.899 Other long term (current) drug therapy; Z79.84 Long term (current) use of oral hypoglycemic drugs; Z79.4 Long term (current) use of insulin; Z79.01 Long term (current) use of anticoagulants
CPT/HCPCS: 36415; 82962; 85025; 80048; 36561; 76937; 77001; 71045; C1752; C1788; Q9967; J2250; J3490 ×2; J0690; J3010; J1644

== ENCOUNTER → 2019-08-04 | Outpatient (CLI) | payer OTHER ==
[~2019-08-04] MED LIST changes: +ACETAMINOPHEN 325 MG TABLET ONE; +ACETAMINOPHEN 325 MG TABLET PO PRN; -CEFAZOLIN 1 GM/D5W RTU 1 GM/50 ML RTUPB IV ONE; -CEFAZOLIN 1 GM/D5W RTU 1 GM/50 ML RTUPB IV PRN; +DIPHENHYDRAMINE HCL 25 MG CAPSULE ONE; +DIPHENHYDRAMINE HCL 25 MG CAPSULE PO PRN; +FUROSEMIDE INJ/PF 20 MG/2 ML SDV IV PRN; +NORMAL SALINE 250 ML IV PRN
== END ==
LOC: II 10:24 → 2N 10:36 → II 10:36
PROVIDERS: ATTEND Internal Medicine
DX: C90.00 Multiple myeloma not having achieved remission (principal); D64.81 Anemia due to antineoplastic chemotherapy

== ENCOUNTER → 2019-08-27 | Outpatient (CLI) | payer OTHER ==
--- NOTE | 2019-08-27 18:57 | XCELERA REPORT ---
[address] [address] Transthoracic Echocardiogram Report Name: SHIV CRAIG Age: 64 yrs Gender: Male : 1955 Patient Status: Outpatient Patient Location: Study Date: 08/27/2019 10:20 AM Height: 72 in Weight: 250 lb BSA: 2.3 m2 Procedure: A two-dimensional transthoracic echocardiogram with color flow Doppler was performed. Study Quality: Fair. Reason For Study: ADVERSE EFFECT OF IMMUNOSUPPRESSIVE DRUGS History: PRE STARTIBG OF IMMUNOSUPPRESSIVE DRUGS. Ordering Physician: PRINCE OSBORNE Performed By: Oliver Aponte Interpretation Summary The left ventricle is normal in size. There is normal left ventricular wall thickness. LV EF is 60% to 65% Left ventricular systolic function is normal. Doppler measurements suggest normal left ventricular diastolic function The left ventricular wall motion is normal. There is no thrombus. No ASD ,VSd , or PFO seen. The right ventricle is not well visualized secondary to technical limitations Right atrium not well visualized secondary to technical limitations There is no evidence of mitral valve prolapse. There is no vegetation seen on the mitral valve. There is no mitral valve stenosis. There is no mitral regurgitation noted. There is no aortic valvular vegetation. There is no aortic valve stenosis There is no LVOT obstruction. No aortic regurgitation is present. There is no tricuspid stenosis. There is a trace amount of tricuspid regurgitation There is mild pulmonary hypertension by echo RVSp is 35 mm of Hg , with RA mean of 10. There is no pulmonic valvular stenosis. There is a trace amount of pulmonic regurgitation The aortic root is normal size. The inferior vena cava appeared normal and decreased > 50% with respiration (RAP 5-10 mmHg) There is no pericardial effusion. MMode/2D Measurements & Calculations RVDd: 3.8 cm LVIDd: 5.9 cm FS: 27.3 % Ao root diam: 4.0 cm IVSd: 0.77 cm LVIDs: 4.3 cm EDV(Teich): 170.5 ml Ao root area: 12.7 cm2 LVPWd: 0.91 cm ESV(Teich): 81.4 ml LA dimension: 4.1 cm EF(Teich): 52.3 % Doppler Measurements & Calculations MV E max shaquille: MV P1/2t max shaquille: Ao V2 max: LV V1 max P.4 cm/sec 110.2 cm/sec 177.2 cm/sec 7.5 mmHg MV A max shaquille: MV P1/2t: 77.0 msec Ao max PG: LV V1 max: 98.7 cm/sec MVA(P1/2t): 2.9 cm2 12.6 mmHg 136.5 cm/sec MV E/A: 1.2 MV dec slope: 419.4 cm/sec2 MV dec time: 0.26 sec PA V2 max: TR max shaquille: MV P1/2t-pr_phl: 100.7 cm/sec 247.3 cm/sec 77.0 msec PA max P.1 mmHgTR max P.5 mmHg Left Ventricle The left ventricle is normal in size. There is normal left ventricular wall thickness. LV EF is 60% to 65%. Left ventricular systolic function is normal. Doppler measurements suggest normal left ventricular diastolic function. The left ventricular wall motion is normal. There is no thrombus. No ASD ,VSd , or PFO seen. Right Ventricle The right ventricle is not well visualized secondary to technical limitations. Atria Right atrium not well visualized secondary to technical limitations. The left atrium is borderline dilated. Mitral Valve There is no evidence of mitral valve prolapse. There is no vegetation seen on the mitral valve. There is no mitral valve stenosis. There is no mitral regurgitation noted. Aortic Valve There is no aortic valvular vegetation. There is no aortic valve stenosis. There is no LVOT obstruction. No aortic regurgitation is present. Tricuspid Valve There is no tricuspid stenosis. There is a trace amount of tricuspid regurgitation. There is mild pulmonary hypertension by echo. RVSp is 35 mm of Hg , with RA mean of 10. Pulmonic Valve There is no pulmonic valvular stenosis. There is a trace amount of pulmonic regurgitation. Great Vessels The aortic root is normal size. The inferior vena cava appeared normal and decreased > 50% with respiration (RAP 5-10 mmHg). Effusions There is no pericardial effusion. : PRINCE OSBORNE Lakshmi
== END ==
LOC: SP 09:12
PROVIDERS: ATTEND Internal Medicine
DX: C90.00 Multiple myeloma not having achieved remission (principal); Z79.899 Other long term (current) drug therapy
CPT/HCPCS: 93306

== ENCOUNTER 2020-06-12 10:06 | Inpatient (IN) | payer OTHER ==
[2020-06-12 12:03] LABS: HEMATOCRIT 26.2 % (37.9-51.0); HEMOGLOBIN 8.5 g/dL (13.5-17.0); MEAN CORPUSCULAR HEMOGLOBIN 31.3 pg (27.0-33.4); MEAN CORPUSCULAR HGB CONC 32.6 g/dL (32.0-36.0); MEAN CORPUSCULAR VOLUME 96 fl (80-97); PLATELET COUNT 324 10^3/uL (150-450); RED BLOOD COUNT 2.72 10^6/uL (4.35-5.55); RED CELL DISTRIBUTION WIDTH 20.6 % (11.5-14.0); WHITE BLOOD COUNT 3.1 10^3/uL (4.0-10.5)
[2020-06-12 12:05] LABS: VENOUS BLOOD BASE EXCESS 1.3 mmol/L; VENOUS BLOOD HCO3 26.4 mmol/L (20-32); VENOUS BLOOD PH 7.4 (7.30-7.42)
--- NOTE | 2020-06-12 12:24 | ER Document Report ---
Entered by ANAI GREENBERG SCRIBE 06/12/20 1134 Acting as scribe for:CHRISTOPHER MORSE MD ED General - General Chief Complaint: Fever Stated Complaint: FEVER Time Seen by Provider: 06/12/20 11:11 Information source: Patient Notes: This 65-year-old male patient with a history of multiple myeloma on chemotherapy with last treatment being a week ago presents today with complaints of fevers off and on since yesterday, persistent today. Patient has had a slight cough that is nonproductive. He has not had any shortness of breath with this cough. He was sent in by his oncologist today after having a temperature of 103 F in their office. Nursing staff states that no antipyretics were given prior to arrival. Patient was not given any WBC stimulating medication during his last chemo treatment. TRAVEL OUTSIDE OF THE [place] IN LAST 30 DAYS: No - Related Data Allergies/Adverse Reactions: No Known Allergies Allergy (Verified 07/23/19 07:17) Past Medical History - General Information source: Patient, [facility] Records, Outside Facility Records - Social History Smoking Status: Never Smoker Cigarette use (# per day): No Frequency of alcohol use: None Drug Abuse: None Lives with: Family Family History: Reviewed & Not Pertinent - Past Medical History Cardiac Medical History: Reports: Hx DVT, Hx Hypercholesterolemia, Hx Hypertension, Hx Pulmonary Embolism Endocrine Medical History: Reports: Hx Diabetes Mellitus Type 2 Musculoskeletal Medical History: Reports Hx Arthritis - neck, shoulder, hands Past Surgical History: Reports: Hx Abdominal Surgery, Hx Tonsillectomy, Hx Vascu lar Surgery - port placement, Other - Caval filter implant. - Immunizations Hx Diphtheria, Pertussis, Tetanus Vaccination: Yes Hx Pneumococcal Vaccination: 07/04/14 Review of Systems - Review of Systems Constitutional: See HPI, Fever EENT: No symptoms reported Cardiovascular: No symptoms reported Respiratory: See HPI, Cough. denies: Short of breath Gastrointestinal: No symptoms reported Genitourinary: No symptoms reported Male Genitourinary: No symptoms reported Musculoskeletal: No symptoms reported Skin: No symptoms reported Hematologic/Lymphatic: No symptoms reported Neurological/Psychological: No symptoms reported -: Yes All other systems reviewed and negative Physical Exam - Vital signs Vitals: Temp Pulse Resp BP Pulse Ox 100.9 F H 112 H 20 90/56 L 90 L 06/12/20 10:06 06/12/20 10:06 06/12/20 10:06 06/12/20 10:06 06/12/20 10:06 - Notes Notes: Physical Exam: General: Alert. HEENT: Normocephalic. Atraumatic. PERRL. Extraocular movements intact. Oropharynx clear. Neck: Supple. Non-tender. Respiratory: No respiratory distress. Rhonchi with cough. Cardiovascular: Regular rate and rhythm. Abdominal: Normal Inspection. Non-tender. No distension. Normal Bowel Sounds. Back: No gross abnormalities. Extremities: Moves all four extremities. Upper extremities: Normal inspection. Normal ROM. Lower extremities: Normal inspection. No edema. Normal ROM. Neurological: Normal cognition. AAOx4. Normal speech. Psychological: Normal affect. Normal Mood. Skin: Warm. Diaphoretic. Normal color. Course - Re-evaluation Re-evalutation: 06/12/20 16:43 The patient was evaluated during the global COVID-19 pandemic and that diagnosis was suspected/considered upon their initial presentation. Their evaluation, treatment and testing was consistent with current guidelines for patients who present with complaints or symptoms that may be related to COVID-19. - Vital Signs Vital signs: Temp Pulse Resp BP Pulse Ox 98.5 F 87 21 H 102/69 99 06/12/20 18:22 06/12/20 18:22 06/12/20 18:22 06/12/20 18:22 06/12/20 18:22 - Laboratory Results Result Diagrams: 06/12/20 10:39 06/12/20 10:39 Laboratory Results Interpreted: 06/12/20 06/12/20 10:39 10:39 WBC 3.1 L RBC 2.72 L Hgb 8.5 L Hct 26.2 L RDW 20.6 H Seg Neuts % (Manual) 94 H Lymphocytes % (Manual) 1 L Abs Lymphs (Manual) 0.0 L Sodium 129.0 L Anion Gap 4 L BUN 21 H Creatine Kinase < 20 L Total Protein 6.1 L Albumin 3.0 L Critical Laboratory Results Reviewed: No Critical Results - Radiology Results Radiology Results Interpreted: 06/12/20 14:52 Chest x-ray does not show acute cardiopulmonary abnormalities. Critical Radiology Results Reviewed: No Critical Results - EKG Interpretation by Nc EKG shows normal: Sinus rhythm, [place], Intervals, QRS Complexes. abnormal: ST-T Waves - Nonspecific lateral T abnormalities Rate: Normal - 82 Rhythm: NSR, APC's - Consults Dr. Maldonado Time consulted: 14:42 Consulted provider: will come to ER Discharge - Discharge Clinical Impression: Neutropenic fever, COVID-19 virus detected Hypotension Qualifiers: Hypotension type: unspecified hypotension type Qualified Code(s): I95.9 - Hypotension, unspecified Condition: Good Disposition: ADMITTED INPATIENT Admitting Provider: Joel (Hospitalist) Unit Admitted: Medical Floor I personally performed the services described in the documentation, reviewed and edited the documentation which was dictated to the scribe in my presence, and it accurately records my words and actions.
--- NOTE | 2020-06-12 12:25 | RADIOLOGY REPORT (SQ) ---
EXAM DESCRIPTION: CHEST SINGLE VIEW IMAGES COMPLETED DATE/TIME: 06/12/2020 11:09 am REASON FOR STUDY: Febrile neutropenia COMPARISON: None. EXAM PARAMETERS: NUMBER OF VIEWS: One view. TECHNIQUE: Single frontal radiographic view of the chest acquired. RADIATION DOSE: NA LIMITATIONS: None. FINDINGS: LUNGS AND PLEURA: No opacities, masses or pneumothorax. No pleural effusion. MEDIASTINUM AND HILAR STRUCTURES: No masses. Contour normal. HEART AND VASCULAR STRUCTURES: Heart normal in size. Normal vasculature. BONES: No acute findings. HARDWARE: New right MediPort catheter with tip in the right atrium. OTHER: Small hiatal hernia is unchanged. IMPRESSION: No acute cardiopulmonary disease. TECHNICAL DOCUMENTATION: JOB ID: [id number] [employer]- All Rights Reserved Reading location - IP/workstation name: [email or web address]
[2020-06-12] MEDS ORDERED: CEFEPIME 2 GM/D5W RTU 2 GM/50 ML RTUPB IV ONE (12:26)
[2020-06-12 12:27] LABS: ABSOLUTE MONOCYTES # (MANUAL) 0.1 10^3/uL (0.1-1.4); BASOPHILS % (MANUAL) 0 % (0-2); EOSINOPHILS % (MANUAL) 1 % (0-6); LYMPHOCYTES % (MANUAL) 1 % (13-45); MONOCYTES % (MANUAL) 4 % (3-13); SEGMENTED NEUTROPHILS % (MAN) 94 % (42-78); TOTAL CELLS COUNTED 100
[2020-06-12] MEDS ORDERED: VANCOMYCIN HCL INJ 1000 MG VIAL IV ONE (12:27)
[2020-06-12 12:28] LABS: ANISOCYTOSIS 2+; TEAR DROP CELLS SLIGHT; TOXIC GRANULATION SLIGHT
[2020-06-12 12:29] LABS: OVALOCYTES SLIGHT; POLYCHROMASIA SLIGHT
[2020-06-12 12:30] LABS: PLATELET CLUMPS PRESENT; PLATELET COMMENT ADEQUATE
[2020-06-12 12:58] LABS: ALKALINE PHOSPHATASE 63 U/L (38-126); ASPARTATE AMINO TRANSFERASE 19 U/L (17-59); BILIRUBIN,DIRECT 0.2 mg/dL (0.0-0.4); BILIRUBIN,TOTAL 0.5 mg/dL (0.2-1.3); BLOOD UREA NITROGEN 21 mg/dL (7-20); CALCIUM 8.6 mg/dL (8.4-10.2); CARBON DIOXIDE 27 mmol/L (22-30); CHLORIDE 98 mmol/L (98-107); GLUCOSE 91 mg/dL (75-110); POTASSIUM 4.2 mmol/L (3.6-5.0); TOTAL PROTEIN 6.1 g/dL (6.3-8.2)
[2020-06-12 13:02] LABS: CREATINE KINASE < 20 U/L (55-170)
[2020-06-12 13:14] LABS: ANION GAP 4 (5-19)
[2020-06-12 14:39] LABS: APPEARANCE,URINE CLEAR; BILIRUBIN,URINE NEGATIVE (NEGATIVE); COLOR,URINE STRAW; GLUCOSE, URINE NEGATIVE (NEGATIVE); KETONES,URINE NEGATIVE (NEGATIVE); LEUKOCYTE ESTERASE,URINE NEGATIVE (NEGATIVE); NITRITE,URINE NEGATIVE (NEGATIVE); PROTEIN,URINE NEGATIVE (NEGATIVE); URINE SPECIFIC GRAVITY 1.006; UROBILINOGEN,URINE NEGATIVE mg/dL (<2.0)
[2020-06-12] MEDS ORDERED: NORMAL SALINE 1000 ML 1,000 ML IV ONE (14:51)
[2020-06-12] MEDS ORDERED: IPRATROPIUM/ALBUTEROL 0.5-2.5 MG/3 ML AMPUL NEB PRN (18:12)
[2020-06-12] MEDS ORDERED: ONDANSETRON 4 MG TAB.RAPDIS PO PRN (18:12)
[2020-06-12] MEDS ORDERED: ACETAMINOPHEN 325 MG TABLET PO PRN (18:12)
[2020-06-12] MEDS ORDERED: CEFEPIME 2 GM/D5W RTU 2 GM/50 ML RTUPB IV SCH (18:15)
[2020-06-12] MEDS ORDERED: NORMAL SALINE 250 ML IV PRN (18:19)
[2020-06-12] MEDS ORDERED: OXYCODONE HCL 10 MG PO PRN (18:21)
[2020-06-12] MEDS ORDERED: BENZONATATE 100 MG CAPSULE PO PRN (18:21)
[2020-06-12] MEDS ORDERED: OXYCODONE HCL 40 MG PO PRN (18:25)
[2020-06-12] MEDS ORDERED: SENNOSIDES/DOCUSATE 8.6-50 MG 1 EACH TABLET PO PRN (18:26)
[2020-06-12] MEDS ORDERED: OXYCODONE HCL IR 5 MG TABLET PO PRN (18:31)
[2020-06-12 19:56] LABS: INTERNATIONAL RATION (INR) 1.15; PROTHROMBIN TIME 14.9 SEC (11.4-15.4)
[2020-06-12 19:59] LABS: D-DIMER 1.47 ug/mL (0.00-0.50)
[2020-06-12 20:06] LABS: C-REACTIVE PROTEIN 61.6 mg/L (<10.0)
[2020-06-12] MEDS: OXYCODONE HCL SR 40 MG TABLET PO SCH (21:46)
[2020-06-12] MEDS: DEXAMETHASONE SOD PHOS INJ 10 MG/1 ML VIAL IV SCH (21:49)
[2020-06-12] MEDS: ATORVASTATIN CALCIUM 10 MG TABLET PO SCH (21:51)
[2020-06-12] MEDS: RIVAROXABAN 10 MG TABLET PO SCH (21:51)
[2020-06-12] MEDS: CEFEPIME HCL 2 GM in DEXTROSE 5%-WATER 50 ML IV SCH (21:52)
[2020-06-12] MEDS: VALACYCLOVIR HCL 500 MG TABLET PO SCH (21:52)
[2020-06-12] MEDS ORDERED: PRAVASTATIN SODIUM 80 MG PO SCH (22:00)
[2020-06-12] MEDS: INSULIN GLARGINE,HUM.REC.ANLOG 1,000 UNIT/10 ML VIAL SUBCUT SCH (22:04)
[2020-06-12] MEDS ORDERED: GLUCAGON,HUMAN RECOMB 1 MG INJ IM PRN (22:21)
[2020-06-12] MEDS ORDERED: DEXTROSE 40% GEL 15 GM TUBE PO PRN ×2 (22:21)
[2020-06-12] MEDS ORDERED: DEXTROSE 50%-WATER 25 GM/50 ML DISP.SYRIN IV PRN ×2 (22:21)
--- NOTE | 2020-06-12 22:24 | PDOC H&P ---
History of Present Illness Admission Date/PCP: 06/12/20 15:42 PRINCE OSBORNE MD Patient complains of: Fever and cough History of Present Illness: SHIV CRAIG is a 65 year old male, past medical history of multiple myeloma currently on chemo, hypertension, hyperlipidemia, type 2 diabetes who was sent to the ED by his oncologist due to grade fever in the setting of immunocompromise patient. According to the patient he last received chemo about a week prior and has been doing well since then. However since yesterday he developed a fever of 103 associated with cough. He denies having shortness of breath, no loss of sense of taste or smell, no diarrhea, no body malaise. Denies any known exposure to Covid. The emergency room blood pressure 105/68, rate of 112 sinus, respiratory rate 21, 99% on room air, temperature 100.9. CBC showed WBC count of 3.1, hemoglobin of 8.5, platelet count 324, absolute neutrophil count 2.9. CMP showed sodium of 129, potassium 4.2, creatinine 0.89, CRP 61.6. His x-ray was negative. Urinalysis negative. Patient had a rapid Covid test which was positive. ED physician spoke to Dr. Osborne who advised that the patient be admitted for antibiotics due to neutropenic fever and Covid infection. Past Medical History Cardiac Medical History: Reports: DVT, Hyperlipidema, Hypertension, Pulmonary Embolism Denies: Congestive Heart Failure, Coronary Artery Disease, Myocardial Infarction Pulmonary Medical History: Denies: Asthma, Bronchitis, Chronic Obstructive Pulmonary Disease (COPD), Pneumonia EENT Medical History: Reports: None Neurological Medical History: Denies: Seizures Endocrine Medical History: Reports: Diabetes Mellitus Type 2 Denies: Hyperthyroidism, Hypothyroidism Malignancy Medical History: Reports: Other - Multiple myeloma GI Medical History: Denies: Cirrhosis, Gastroesophageal Reflux Disease, Hepatitis Musculoskeltal Medical History: Reports: Arthritis - neck, shoulder, hands Skin Medical History: Denies: Eczema, Psoriasis Psychiatric Medical History: Denies: Depression Hematology: Reports: Anemia - 17 Past Surgical History Past Surgical History: Reports: Tonsillectomy, Vascular Surgery - port placement, Other - Caval filter implant. Social History Lives with: Family Smoking Status: Never Smoker Frequency of Alcohol Use: None Hx Recreational Drug Use: No Drugs: None Hx Prescription Drug Abuse: No - Advance Directive Resuscitation Status: Do Not Resuscitate Surrogate healthcare decision maker:: CODE STATUS discussed with the patient and he is DNR. He understands that by being DNR will not perform CPR on him and he will if he develops cardiac arrest. He understands this. He named his as his healthcare power of collections attorney. Family History Family History: DM, Hypertension Parental Family History Reviewed: Yes Children Family History Reviewed: Yes Sibling(s) Family History Reviewed.: Yes Medication/Allergy Home Medications: Insulin Glargine,Hum.rec.anlog [Lantus] 10 units SQ QHS 08/27/16 Lisinopril/Hydrochlorothiazide [Zestoretic 20-25 mg Tablet] 1 tab PO DAILY 08/27/16 Metformin HCl [Glucophage] 1,000 mg PO BID 08/27/16 Omeprazole 20 mg PO BID 08/27/16 Pravastatin Sodium [Pravachol] 40 mg PO QHS 08/27/16 Oxycodone HCl [Oxycodone HCl 10 MG Tablet] 20 mg PO Q4HP PRN 11/08/17 Valacyclovir HCl [Valtrex] 500 mg PO Q12 11/08/17 Insulin Aspart [Novolog Insulin (Aspart) 100 unit/mL] 0 units SUBCUT .SLIDING SCALE PRN 04/25/18 Promethazine HCl [Phenergan 25 mg Tablet] 25 mg PO Q8HP PRN 05/22/19 Rivaroxaban [Xarelto] 20 mg PO DAILY 05/22/19 Aspirin [Ecotrin 81 mg EC Tablet] 81 mg PO DAILY 06/12/20 Benzonatate [Tessalon Perles 100 mg Capsule] 100 mg PO Q8HP PRN 06/12/20 Calcium Carbonate [Os-Pollo 500 mg Tablet (Oyster-Shell)] 500 mg PO BID 06/12/20 Dexamethasone [Decadron 4 Mg Tablet] 40 mg PO .CHEMO DAYS 06/12/20 Loratadine [Claritin 10 mg Tablet] 10 mg PO DAILY 06/12/20 Lorazepam [Ativan 0.5 mg Tablet] 0.5 mg PO Q8HP PRN 06/12/20 Multivitamin [Tab-A-Rea (Multiple Vitamin) Tablet] 1 tab PO DAILY 06/12/20 Oxycodone HCl [Oxycontin Sr 40 mg Tablet] 40 mg PO Q8 06/12/20 Allergies/Adverse Reactions: No Known Allergies Allergy (Verified 07/23/19 07:17) Review of Systems Constitutional: PRESENT: fatigue, fever(s), headache(s) Eyes: ABSENT: visual disturbances Ears: ABSENT: hearing changes Nose, Mouth, and Throat: ABSENT: mouth pain, sore throat Cardiovascular: ABSENT: dyspnea on exertion, edema, orthropnea, palpitations Respiratory: PRESENT: cough. ABSENT: dyspnea Gastrointestinal: ABSENT: hematemesis, hematochezia Genitourinary: ABSENT: dysuria Musculoskeletal: ABSENT: deformity Neurological: ABSENT: focal weakness, frequent falls Physical Exam Vital Signs: Temp Pulse Resp BP Pulse Ox 98.5 F 87 21 H 102/69 99 06/12/20 18:22 06/12/20 18:22 06/12/20 18:22 06/12/20 18:22 06/12/20 18:22 Intake & Output 06/11/20 06/12/20 06/13/20 06:59 06:59 06:59 Intake Total 1050 Balance 1050 Weight 105.9 kg General appearance: PRESENT: no acute distress, cooperative Head exam: PRESENT: atraumatic, normocephalic Eye exam: PRESENT: EOMI, PERRLA Mouth exam: PRESENT: moist Neck exam: PRESENT: full ROM Respiratory exam: PRESENT: rhonchi, symmetrical, unlabored Cardiovascular exam: PRESENT: RRR, +S1, +S2 GI/Abdominal exam: PRESENT: normal bowel sounds, soft. ABSENT: rebound, tenderness Extremities exam: PRESENT: full ROM Musculoskeletal exam: PRESENT: full ROM Neurological exam: PRESENT: alert, awake, oriented to person, oriented to place, oriented to time, oriented to situation Psychiatric exam: PRESENT: normal mood Skin exam: PRESENT: normal color Results Laboratory Results: 06/12/20 10:39 06/12/20 10:39 06/12/20 06/12/20 06/12/20 10:39 10:39 10:39 WBC 3.1 L RBC 2.72 L Hgb 8.5 L Hct 26.2 L MCV 96 MCH 31.3 MCHC 32.6 RDW 20.6 H Plt Count 324 Seg Neutrophils % Not Reportable VBG pH VBG pCO2 VBG HCO3 VBG Base Excess Sodium 129.0 L Potassium 4.2 Chloride 98 Carbon Dioxide 27 Anion Gap 4 L BUN 21 H Creatinine 0.89 Est GFR ( Amer) > 60 Glucose 91 Lactic Acid 0.9 Calcium 8.6 Ferritin Total Bilirubin 0.5 AST 19 Alkaline Phosphatase 63 C-Reactive Protein Total Protein 6.1 L Albumin 3.0 L Urine Color Urine Appearance Urine pH Ur Specific [place] Urine Protein Urine Glucose (UA) Urine Ketones Urine Blood Urine Nitrite Ur Leukocyte Esterase Blood Type 06/12/20 06/12/20 06/12/20 11:52 14:11 19:30 WBC RBC Hgb Hct MCV MCH MCHC RDW Plt Count Seg Neutrophils % VBG pH 7.40 VBG pCO2 44.0 VBG HCO3 26.4 VBG Base Excess 1.3 Sodium Potassium Chloride Carbon Dioxide Anion Gap BUN Creatinine Est GFR ( Amer) Glucose Lactic Acid Calcium Ferritin Total Bilirubin AST Alkaline Phosphatase C-Reactive Protein Total Protein Albumin Urine Color STRAW Urine Appearance CLEAR Urine pH 7.0 Ur Specific [place] 1.006 Urine Protein NEGATIVE Urine Glucose (UA) NEGATIVE Urine Ketones NEGATIVE Urine Blood NEGATIVE Urine Nitrite NEGATIVE Ur Leukocyte Esterase NEGATIVE Blood Type B NEGATIVE 06/12/20 19:30 WBC RBC Hgb Hct MCV MCH MCHC RDW Plt Count Seg Neutrophils % VBG pH VBG pCO2 VBG HCO3 VBG Base Excess Sodium Potassium Chloride Carbon Dioxide Anion Gap BUN Creatinine Est GFR ( Amer) Glucose Lactic Acid Calcium Ferritin 432.00 Total Bilirubin AST Alkaline Phosphatase C-Reactive Protein 61.6 H Total Protein Albumin Urine Color Urine Appearance Urine pH Ur Specific [place] Urine Protein Urine Glucose (UA) Urine Ketones Urine Blood Urine Nitrite Ur Leukocyte Esterase Blood Type 06/12/20 06/12/20 10:39 10:39 Creatine Kinase < 20 L Troponin I 0.025 Impressions: Chest X-Ray 06/12/20 11:34 IMPRESSION: No acute cardiopulmonary disease. Assessment and Plan - Diagnosis (1) Neutropenic fever Is this a current diagnosis for this admission?: Yes Plan: -Patient currently undergoing chemo for multiple myeloma came in due to high- grade fever 103 associated with cough. -BC count mildly decreased to 3.1, absolute neutrophil count 2.9. -Rapid Covid test positive -Chest x-ray negative -urinalysis normal -Awaiting blood cultures -Started on broad-spectrum antibiotics cefepime and vanc -Started on dexamethasone 6 mg IV daily for Covid. -Ordered convalescent plasma -Dr. Davonte hurst following (2) COVID-19 virus detected Is this a current diagnosis for this admission?: Yes Plan: -Has been having fever and cough for the past 2 days -Rapid Covid positive -CXR negative -Does not qualify for remdesivir as he does not need oxygen -Started him on dexamethasone 6 mg IV daily -Ordered convalescent plasma -Vitamin C, zinc -May benefit from ivermectin. We will discuss this with Dr. Osborne if it has any interaction with his chemo drugs. (3) Multiple myeloma Qualifiers: Multiple myeloma remission status: not in remission Qualified Code(s): C90.00 - Multiple myeloma not having achieved remission Is this a current diagnosis for this admission?: Yes Plan: -Undergoing chemo weekly -oncology following (4) Diabetes mellitus type 2 in obese Is this a current diagnosis for this admission?: Yes Plan: -On Metformin at home -We will switch him to sliding scale with Accu-Cheks and hypoglycemia protocol (5) HTN (hypertension) Qualifiers: Hypertension type: essential hypertension Qualified Code(s): I10 - Essential (primary) hypertension Is this a current diagnosis for this admission?: Yes Plan: -Currently has episodes of hypotension -He is on lisinopril hydrochlorothiazide at home. Will hold this for now. (6) History of pulmonary embolism Is this a current diagnosis for this admission?: Yes Plan: Continue Xarelto (7) Hyperlipidemia Qualifiers: Hyperlipidemia type: unspecified Qualified Code(s): E78.5 - Hyperlipidemia, unspecified Is this a current diagnosis for this admission?: Yes Plan: Continue pravastatin (8) Cancer related pain Is this a current diagnosis for this admission?: Yes Plan: Continue oxycodone -Senna for opioid Related constipation - Time Time Spent with patient: 25-34 minutes Medications reviewed and adjusted accordingly: Yes Anticipated Discharge Disposition: Home, Self Care Anticipated Discharge Timeframe: TBD
[2020-06-12] MEDS ORDERED: NORMAL SALINE 1000 ML 500 ML IV ONE (22:30)
--- NOTE | 2020-06-12 22:30 | ADVANCED CARE ---
- Diagnosis (2) Neutropenic fever Diagnosis Current: Yes (3) COVID-19 virus detected Diagnosis Current: Yes (6) History of pulmonary embolism Diagnosis Current: Yes (7) Hyperlipidemia Diagnosis Current: Yes (8) Cancer related pain Diagnosis Current: Yes Attendance: Patient and I Resuscitation Status: Do Not Resuscitate Discussion: CODE STATUS discussed with the patient and he opted to be made DNR. He understands that by being DNR he will in the event of a cardiac arrest. He understands and accept this risk. He has also named his as his healthcare power of digital media manager. Care Planning Goals: CODE STATUS and healthcare power of digital media manager Document(s) Completed: None Time Spent: >16 min, <30 min
[2020-06-12] MEDS: OXYCODONE HCL IR 5 MG TABLET PO PRN (23:25)
[2020-06-13 00:13] LABS: APPEARANCE,URINE CLEAR; BILIRUBIN,URINE NEGATIVE (NEGATIVE); COLOR,URINE STRAW; GLUCOSE, URINE NEGATIVE (NEGATIVE); KETONES,URINE NEGATIVE (NEGATIVE); LEUKOCYTE ESTERASE,URINE NEGATIVE (NEGATIVE); NITRITE,URINE NEGATIVE (NEGATIVE); PROTEIN,URINE NEGATIVE (NEGATIVE); URINE SPECIFIC GRAVITY 1.008; UROBILINOGEN,URINE NEGATIVE mg/dL (<2.0)
[2020-06-13] MEDS: OXYCODONE HCL IR 5 MG TABLET PO PRN ×4 (03:40→20:24)
[2020-06-13] MEDS: RINGERS SOLUTION,LACTATED 1,000 ML IV PRN ×2 (05:32→22:06)
[2020-06-13] MEDS: OXYCODONE HCL SR 40 MG TABLET PO SCH ×3 (05:32→21:57)
[2020-06-13] MEDS: CEFEPIME HCL 2 GM in DEXTROSE 5%-WATER 50 ML IV SCH ×3 (05:32→22:01)
[2020-06-13 06:44] LABS: HEMATOCRIT 22.8 % (37.9-51.0); MEAN CORPUSCULAR HEMOGLOBIN 31.6 pg (27.0-33.4); MEAN CORPUSCULAR HGB CONC 33.1 g/dL (32.0-36.0); MEAN CORPUSCULAR VOLUME 96 fl (80-97); PLATELET COUNT 291 10^3/uL (150-450); RED BLOOD COUNT 2.39 10^6/uL (4.35-5.55); RED CELL DISTRIBUTION WIDTH 20.6 % (11.5-14.0); WHITE BLOOD COUNT 2.2 10^3/uL (4.0-10.5)
[2020-06-13 07:00] LABS: ALBUMIN 2.9 g/dL (3.5-5.0); ALKALINE PHOSPHATASE 55 U/L (38-126); ANION GAP 6 (5-19); ASPARTATE AMINO TRANSFERASE 20 U/L (17-59); BILIRUBIN,DIRECT 0.1 mg/dL (0.0-0.4); BILIRUBIN,TOTAL 0.4 mg/dL (0.2-1.3); BLOOD UREA NITROGEN 13 mg/dL (7-20); CALCIUM 8.4 mg/dL (8.4-10.2); CARBON DIOXIDE 25 mmol/L (22-30); CHLORIDE 103 mmol/L (98-107); GLUCOSE 143 mg/dL (75-110); POTASSIUM 4.7 mmol/L (3.6-5.0); TOTAL PROTEIN 5.8 g/dL (6.3-8.2)
[2020-06-13 07:08] LABS: ABSOLUTE MONOCYTES # (MANUAL) 0.1 10^3/uL (0.1-1.4); BAND NEUTROPHILS % (MANUAL) 1 % (3-5); BASOPHILS % (MANUAL) 0 % (0-2); EOSINOPHILS % (MANUAL) 0 % (0-6); LYMPHOCYTES % (MANUAL) 0 % (13-45); MONOCYTES % (MANUAL) 4 % (3-13); SEGMENTED NEUTROPHILS % (MAN) 95 % (42-78); TOTAL CELLS COUNTED 100
[2020-06-13 07:09] LABS: ANISOCYTOSIS 2+; PLATELET COMMENT ADEQUATE; POIKILOCYTOSIS SLIGHT; SCHISTOCYTES SLIGHT
[2020-06-13 07:11] LABS: HEMOGLOBIN 7.5 g/dL (13.5-17.0)
[2020-06-13] MEDS ORDERED: VANCOMYCIN HCL 0 MG in DEXTROSE 5%-WATER 250 ML IV NR (07:45)
--- NOTE | 2020-06-13 07:55 | PDOC CONSULTATION ---
Consultation Consult Date: 06/13/20 Attending physician:: ASHLI HILL Provider Consulted: PRINCE OSBORNE Consult reason:: Patient well-known to oncology clinic with progressive multiple myeloma here with Covid infection History of Present Illness Admission Date/PCP: 06/12/20 15:42 PRINCE OSBORNE MD Patient complains of: Cough, fever, weakness History of Present Illness: SHIV CRAIG is a 65 year old male well-known to our oncology clinic with multiple myeloma here with fifth line therapy, has been on Cytoxan/Pomalyst/dexamethasone, had received 2 cycles of that so far and actually had an improvement in his M spike. Has been worked up for autoLog his [facility] through [facility] but still [facility] well as needs to have a good response prior to going to treatment. Came to our office yesterday was diaphoretic, weak fever of 103 in the office. We sent him to the ER because of how bad he looked. There, he was not hypoxic, chest x-ray was clear, but Covid testing PCR was positive. He was placed on broad-spectrum antibiotics along with steroids and did receive convalescent plasma yesterday. Feels much better today. Did agree to DNR with hospitalist team and we would certainly agree with that. Past Medical History Cardiac Medical History: Reports: DVT, Hyperlipidema, Hypertension, Pulmonary Embolism Denies: Congestive Heart Failure, Coronary Artery Disease, Myocardial Infarction Pulmonary Medical History: Denies: Asthma, Bronchitis, Chronic Obstructive Pulmonary Disease (COPD), Pneumonia EENT Medical History: Reports: None Neurological Medical History: Denies: Seizures Endocrine Medical History: Reports: Diabetes Mellitus Type 2 Denies: Hyperthyroidism, Hypothyroidism Malignancy Medical History: Reports: Other - Multiple myeloma GI Medical History: Denies: Cirrhosis, Gastroesophageal Reflux Disease, Hepatitis Musculoskeltal Medical History: Reports: Arthritis - neck, shoulder, hands Skin Medical History: Denies: Eczema, Psoriasis Psychiatric Medical History: Denies: Depression Hematology: Reports: Anemia - 17 Past Surgical History Past Surgical History: Reports: Tonsillectomy, Vascular Surgery - port placement, Other - Caval filter implant. Social History Information Source: Patient Lives with: Family Smoking Status: Never Smoker Frequency of Alcohol Use: None Hx Recreational Drug Use: No Drugs: None Hx Prescription Drug Abuse: No - Advance Directive Resuscitation Status: Do Not Resuscitate Family History Family History: DM, Hypertension Parental Family History Reviewed: Yes Children Family History Reviewed: Yes Sibling(s) Family History Reviewed.: Yes Medication/Allergy Home Medications: Insulin Glargine,Hum.rec.anlog [Lantus] 10 units SQ QHS 08/27/16 Lisinopril/Hydrochlorothiazide [Zestoretic 20-25 mg Tablet] 1 tab PO DAILY 08/27/16 Metformin HCl [Glucophage] 1,000 mg PO BID 08/27/16 Omeprazole 20 mg PO BID 08/27/16 Pravastatin Sodium [Pravachol] 40 mg PO QHS 08/27/16 Oxycodone HCl [Oxycodone HCl 10 MG Tablet] 20 mg PO Q4HP PRN 11/08/17 Valacyclovir HCl [Valtrex] 500 mg PO Q12 11/08/17 Insulin Aspart [Novolog Insulin (Aspart) 100 unit/mL] 0 units SUBCUT .SLIDING SCALE PRN 04/25/18 Promethazine HCl [Phenergan 25 mg Tablet] 25 mg PO Q8HP PRN 05/22/19 Rivaroxaban [Xarelto] 20 mg PO DAILY 05/22/19 Aspirin [Ecotrin 81 mg EC Tablet] 81 mg PO DAILY 06/12/20 Benzonatate [Tessalon Perles 100 mg Capsule] 100 mg PO Q8HP PRN 06/12/20 Calcium Carbonate [Os-Pollo 500 mg Tablet (Oyster-Shell)] 500 mg PO BID 06/12/20 Dexamethasone [Decadron 4 Mg Tablet] 40 mg PO .CHEMO DAYS 06/12/20 Loratadine [Claritin 10 mg Tablet] 10 mg PO DAILY 06/12/20 Lorazepam [Ativan 0.5 mg Tablet] 0.5 mg PO Q8HP PRN 06/12/20 Multivitamin [Tab-A-Rea (Multiple Vitamin) Tablet] 1 tab PO DAILY 06/12/20 Oxycodone HCl [Oxycontin Sr 40 mg Tablet] 40 mg PO Q8 06/12/20 Allergies/Adverse Reactions: No Known Allergies Allergy (Verified 07/23/19 07:17) Review of Systems Constitutional: ABSENT: chills, fever(s), headache(s), weight gain, weight loss Eyes: ABSENT: visual disturbances Ears: ABSENT: hearing changes Cardiovascular: ABSENT: chest pain, dyspnea on exertion, edema, orthropnea, palpitations Respiratory: ABSENT: cough, hemoptysis Gastrointestinal: ABSENT: abdominal pain, constipation, diarrhea, hematemesis, hematochezia, nausea, vomiting Genitourinary: ABSENT: dysuria, hematuria Musculoskeletal: ABSENT: joint swelling Integumentary: ABSENT: rash, wounds Neurological: ABSENT: abnormal gait, abnormal speech, confusion, dizziness, focal weakness, syncope Psychiatric: ABSENT: anxiety, depression, homidical ideation, suicidal ideation Endocrine: ABSENT: cold intolerance, heat intolerance, polydipsia, polyuria Hematologic/Lymphatic: ABSENT: easy bleeding, easy bruising Physical Exam Vital Signs: Temp Pulse Resp BP Pulse Ox 97.4 F 62 18 105/56 L 95 06/13/20 03:33 06/13/20 03:33 06/13/20 03:33 06/13/20 03:33 06/13/20 03:33 Intake & Output 06/12/20 06/13/20 06/14/20 06:59 06:59 06:59 Intake Total 2015 Output Total 1600 Balance 415 Weight 105.1 kg General appearance: PRESENT: no acute distress, well-developed, well-nourished Head exam: PRESENT: atraumatic, normocephalic Eye exam: PRESENT: conjunctiva pink, EOMI, PERRLA. ABSENT: scleral icterus Ear exam: PRESENT: normal external ear exam Mouth exam: PRESENT: moist, tongue midline Neck exam: ABSENT: carotid bruit, JVD, lymphadenopathy, thyromegaly Respiratory exam: PRESENT: clear to auscultation nora. ABSENT: rales, rhonchi, wheezes Cardiovascular exam: PRESENT: RRR. ABSENT: diastolic murmur, rubs, systolic murmur Pulses: PRESENT: normal dorsalis pedis pul Vascular exam: PRESENT: normal capillary refill GI/Abdominal exam: PRESENT: normal bowel sounds, soft. ABSENT: distended, guarding, mass, organolmegaly, rebound, tenderness Rectal exam: PRESENT: deferred Extremities exam: PRESENT: full ROM. ABSENT: calf tenderness, clubbing, pedal edema Neurological exam: PRESENT: alert, awake, oriented to person, oriented to place, oriented to time, oriented to situation, CN II-XII grossly intact. ABSENT: motor sensory deficit Psychiatric exam: PRESENT: appropriate affect, normal mood. ABSENT: homicidal ideation, suicidal ideation Skin exam: PRESENT: dry, intact, warm. ABSENT: cyanosis, rash Results Laboratory Results: 06/13/20 05:30 06/13/20 05:30 06/12/20 06/12/20 06/12/20 10:39 10:39 10:39 WBC 3.1 L RBC 2.72 L Hgb 8.5 L Hct 26.2 L MCV 96 MCH 31.3 MCHC 32.6 RDW 20.6 H Plt Count 324 Seg Neutrophils % Not Reportable VBG pH VBG pCO2 VBG HCO3 VBG Base Excess Sodium 129.0 L Potassium 4.2 Chloride 98 Carbon Dioxide 27 Anion Gap 4 L BUN 21 H Creatinine 0.89 Est GFR ( Amer) > 60 Glucose 91 Lactic Acid 0.9 Calcium 8.6 Magnesium Ferritin Total Bilirubin 0.5 AST 19 Alkaline Phosphatase 63 C-Reactive Protein Total Protein 6.1 L Albumin 3.0 L Urine Color Urine Appearance Urine pH Ur Specific [place] Urine Protein Urine Glucose (UA) Urine Ketones Urine Blood Urine Nitrite Ur Leukocyte Esterase Urine WBC (Auto) Urine RBC (Auto) Blood Type 06/12/20 06/12/20 06/12/20 11:52 14:11 19:30 WBC RBC Hgb Hct MCV MCH MCHC RDW Plt Count Seg Neutrophils % VBG pH 7.40 VBG pCO2 44.0 VBG HCO3 26.4 VBG Base Excess 1.3 Sodium Potassium Chloride Carbon Dioxide Anion Gap BUN Creatinine Est GFR ( Amer) Glucose Lactic Acid Calcium Magnesium Ferritin Total Bilirubin AST Alkaline Phosphatase C-Reactive Protein Total Protein Albumin Urine Color STRAW Urine Appearance CLEAR Urine pH 7.0 Ur Specific [place] 1.006 Urine Protein NEGATIVE Urine Glucose (UA) NEGATIVE Urine Ketones NEGATIVE Urine Blood NEGATIVE Urine Nitrite NEGATIVE Ur Leukocyte Esterase NEGATIVE Urine WBC (Auto) Urine RBC (Auto) Blood Type B NEGATIVE 06/12/20 06/12/20 06/13/20 19:30 22:20 05:30 WBC 2.2 L RBC 2.39 L Hgb 7.5 L Hct 22.8 L MCV 96 MCH 31.6 MCHC 33.1 RDW 20.6 H Plt Count 291 Seg Neutrophils % Not Reportable VBG pH VBG pCO2 VBG HCO3 VBG Base Excess Sodium Potassium Chloride Carbon Dioxide Anion Gap BUN Creatinine Est GFR ( Amer) Glucose Lactic Acid Calcium Magnesium Ferritin 432.00 Total Bilirubin AST Alkaline Phosphatase C-Reactive Protein 61.6 H Total Protein Albumin Urine Color STRAW Urine Appearance CLEAR Urine pH 7.0 Ur Specific [place] 1.008 Urine Protein NEGATIVE Urine Glucose (UA) NEGATIVE Urine Ketones NEGATIVE Urine Blood NEGATIVE Urine Nitrite NEGATIVE Ur Leukocyte Esterase NEGATIVE Urine WBC (Auto) 0 Urine RBC (Auto) 0 Blood Type 06/13/20 05:30 WBC RBC Hgb Hct MCV MCH MCHC RDW Plt Count Seg Neutrophils % VBG pH VBG pCO2 VBG HCO3 VBG Base Excess Sodium 133.7 L Potassium 4.7 Chloride 103 Carbon Dioxide 25 Anion Gap 6 BUN 13 Creatinine 0.66 Est GFR ( Amer) > 60 Glucose 143 H Lactic Acid Calcium 8.4 Magnesium 1.7 Ferritin Total Bilirubin 0.4 AST 20 Alkaline Phosphatase 55 C-Reactive Protein Total Protein 5.8 L Albumin 2.9 L Urine Color Urine Appearance Urine pH Ur Specific [place] Urine Protein Urine Glucose (UA) Urine Ketones Urine Blood Urine Nitrite Ur Leukocyte Esterase Urine WBC (Auto) Urine RBC (Auto) Blood Type 06/12/20 06/12/20 06/12/20 10:39 10:39 19:30 Creatine Kinase < 20 L Troponin I 0.025 0.018 Impressions: Chest X-Ray 06/12/20 11:34 IMPRESSION: No acute cardiopulmonary disease. Assessment & Plan - Diagnosis (1) Neutropenic fever Is this a current diagnosis for this admission?: Yes Plan: Continue for a total of 48 hours to await blood cultures, if cultures are negative DC vancomycin, continue cefepime. (2) COVID-19 virus detected Is this a current diagnosis for this admission?: Yes Plan: Patient does have Covid infection, probable major cause of the fever, convalescent plasma and steroids initiated, continue with supportive care. Thankfully patient is not hypoxic as of now. (3) Multiple myeloma Qualifiers: Multiple myeloma remission status: not in remission Qualified Code(s): C90.00 - Multiple myeloma not having achieved remission Is this a current diagnosis for this admission?: Yes Plan: Treatment on hold for now. He will not receive any further treatment for at least 14 days post Covid testing. We will follow while in-house. (4) Pneumonia Qualifiers: Pneumonia type: due to unspecified organism Laterality: left Lung loca tion: unspecified part of lung Qualified Code(s): J18.9 - Pneumonia, unspecified organism Is this a current diagnosis for this admission?: Yes Plan: Continue with antibiotics as planned for neutropenic fever (5) Cancer related pain Is this a current diagnosis for this admission?: Yes Plan: Patient is on high-dose of OxyContin and oxycodone, asked nursing to verify with our office the dosing we last filled, continue here in house. (6) Anemia Qualifiers: Anemia type: bone marrow failure Bone marrow failure anemia type: pancytopenia, antineoplastic chemotherapy-induced Qualified Code(s): D61.810 - Antineoplastic chemotherapy induced pancytopenia; T45.1X5A - Adverse effect of antineoplastic and immunosuppressive drugs, initial encounter Is this a current diagnosis for this admission?: Yes Plan: Anemia secondary to chemotherapy, hemoglobin is 7.5, as it gets 7 or below, wo uld transfuse at least 1 unit of packed red blood cell. - Time Time Spent: Greater than 70 Minutes
[2020-06-13] MEDS: INSULIN LISPRO 100 UNIT/ML 3 ML VIAL SUBCUT SCH ×4 (08:15→21:59)
[2020-06-13] MEDS ORDERED: NORMAL SALINE 1000 ML 1,000 ML IV ONE (09:20)
[2020-06-13] MEDS ORDERED: LISINOPRIL 10 MG TABLET PO SCH (10:00)
[2020-06-13] MEDS ORDERED: (PENDING PHARMACY ID) (Rivaroxaban [Xarelto] 20 MG Tablet) PO SCH (10:00)
[2020-06-13] MEDS: VALACYCLOVIR HCL 500 MG TABLET PO SCH ×2 (10:45→22:02)
[2020-06-13] MEDS: ASPIRIN 81 MG TABLET, ENT COATED PO SCH (10:45)
[2020-06-13] MEDS: ASCORBIC ACID 500 MG TABLET PO SCH ×2 (10:46→18:46)
[2020-06-13] MEDS: DEXAMETHASONE SOD PHOS INJ 10 MG/1 ML VIAL IV SCH (10:46)
[2020-06-13] MEDS: RIVAROXABAN 10 MG TABLET PO SCH (10:46)
[2020-06-13] MEDS: ZINC SULFATE 220 MG CAPSULE PO SCH (10:46)
[2020-06-13] MEDS: HYDROCHLOROTHIAZIDE 25 MG TABLET PO SCH (10:46)
[2020-06-13] MEDS: VANCOMYCIN HCL 1,500 MG in DEXTROSE 5%-WATER 250 ML IV SCH ×2 (11:35→18:46)
--- NOTE | 2020-06-13 13:21 | PDOC PROGRESS REPORT ---
Subjective Date:: 06/13/20 Subjective:: SHIV CRAIG is a 65 year old male, past medical history of multiple myeloma c urrently on chemo, hypertension, hyperlipidemia, type 2 diabetes who was sent to the ED by his oncologist due to grade fever in the setting of immunocompromise patient. According to the patient he last received chemo about a week prior and has been doing well since then. However since yesterday he developed a fever of 103 associated with cough. He denies having shortness of breath, no loss of s ense of taste or smell, no diarrhea, no body malaise. Denies any known exposure to Covid. The emergency room blood pressure 105/68, rate of 112 sinus, respiratory rate 21, 99% on room air, temperature 100.9. CBC showed WBC count of 3.1, hemoglobin of 8.5, platelet count 324, absolute neutrophil count 2.9. CMP showed sodium of 129, potassium 4.2, creatinine 0.89, CRP 61.6. His x-ray was negative. Urinalysis negative. Patient had a rapid Covid test which was positive. ED physician spoke to Dr. Eaton who advised that the patient be admitted for antibiotics due to neutropenic fever and Covid infection. D2 06/13/20 Hospital stay Patient was seen and examined at bedside. HE reports that he feels much better, still coughing but denies SOB. Afebrile, good appetite. Currently on cefepime and Vanc for neutropenic fever, no growth in blood culture. He received 1 unit of canvalescent plasma and is on dexamethasone. Reason For Visit: COVID 19 INFECTION,FEVER ON IMMUNOCOMPROMISED Physical Exam Vital Signs: Temp Pulse Resp BP Pulse Ox 97.5 F 75 18 105/60 97 06/13/20 11:45 06/13/20 11:45 06/13/20 11:45 06/13/20 11:45 06/13/20 11:45 Intake & Output 06/12/20 06/13/20 06/14/20 06:59 06:59 06:59 Intake Total 2015 Output Total 1600 Balance 415 Weight 105.1 kg General appearance: PRESENT: no acute distress, cooperative Head exam: PRESENT: atraumatic, normocephalic Eye exam: PRESENT: EOMI, PERRLA Mouth exam: PRESENT: moist Neck exam: PRESENT: full ROM Respiratory exam: PRESENT: rhonchi, symmetrical, unlabored Cardiovascular exam: PRESENT: RRR, +S1, +S2 Pulses: PRESENT: +2 pedal pulses bilateral GI/Abdominal exam: PRESENT: normal bowel sounds, soft Extremities exam: PRESENT: full ROM Musculoskeletal exam: PRESENT: full ROM Neurological exam: PRESENT: alert, awake, oriented to person, oriented to place, oriented to time, oriented to situation Psychiatric exam: PRESENT: normal mood Skin exam: PRESENT: normal color Results Laboratory Results: 06/13/20 05:30 06/13/20 05:30 06/12/20 06/12/20 06/12/20 10:39 14:11 19:30 WBC RBC Hgb Hct MCV MCH MCHC RDW Plt Count Seg Neutrophils % Sodium Potassium Chloride Carbon Dioxide Anion Gap 4 L BUN Creatinine Est GFR ( Amer) Glucose Calcium Magnesium Ferritin Total Bilirubin AST Alkaline Phosphatase C-Reactive Protein Total Protein Albumin Urine Color STRAW Urine Appearance CLEAR Urine pH 7.0 Ur Specific [place] 1.006 Urine Protein NEGATIVE Urine Glucose (UA) NEGATIVE Urine Ketones NEGATIVE Urine Blood NEGATIVE Urine Nitrite NEGATIVE Ur Leukocyte Esterase NEGATIVE Urine WBC (Auto) Urine RBC (Auto) Blood Type B NEGATIVE 06/12/20 06/12/20 06/13/20 19:30 22:20 05:30 WBC 2.2 L RBC 2.39 L Hgb 7.5 L Hct 22.8 L MCV 96 MCH 31.6 MCHC 33.1 RDW 20.6 H Plt Count 291 Seg Neutrophils % Not Reportable Sodium Potassium Chloride Carbon Dioxide Anion Gap BUN Creatinine Est GFR ( Amer) Glucose Calcium Magnesium Ferritin 432.00 Total Bilirubin AST Alkaline Phosphatase C-Reactive Protein 61.6 H Total Protein Albumin Urine Color STRAW Urine Appearance CLEAR Urine pH 7.0 Ur Specific [place] 1.008 Urine Protein NEGATIVE Urine Glucose (UA) NEGATIVE Urine Ketones NEGATIVE Urine Blood NEGATIVE Urine Nitrite NEGATIVE Ur Leukocyte Esterase NEGATIVE Urine WBC (Auto) 0 Urine RBC (Auto) 0 Blood Type 06/13/20 05:30 WBC RBC Hgb Hct MCV MCH MCHC RDW Plt Count Seg Neutrophils % Sodium 133.7 L Potassium 4.7 Chloride 103 Carbon Dioxide 25 Anion Gap 6 BUN 13 Creatinine 0.66 Est GFR ( Amer) > 60 Glucose 143 H Calcium 8.4 Magnesium 1.7 Ferritin Total Bilirubin 0.4 AST 20 Alkaline Phosphatase 55 C-Reactive Protein Total Protein 5.8 L Albumin 2.9 L Urine Color Urine Appearance Urine pH Ur Specific [place] Urine Protein Urine Glucose (UA) Urine Ketones Urine Blood Urine Nitrite Ur Leukocyte Esterase Urine WBC (Auto) Urine RBC (Auto) Blood Type 06/12/20 06/12/20 06/12/20 10:39 10:39 19:30 Creatine Kinase < 20 L Troponin I 0.025 0.018 Impressions: Chest X-Ray 06/12/20 11:34 IMPRESSION: No acute cardiopulmonary disease. Assessment and Plan - Diagnosis (1) Neutropenic fever Is this a current diagnosis for this admission?: Yes Plan: -Patient currently undergoing chemo for multiple myeloma came in due to high- grade fever 103 associated with cough. -BC count mildly decreased to 3.1, absolute neutrophil count 2.9. -Rapid Covid test positive -Chest x-ray negative -urinalysis normal -Blood cultures negative x 1 -on cefepime and vanc -Started on dexamethasone 6 mg IV daily for Covid. -received convalescent plasma -Dr. Davonte hurst following (2) COVID-19 virus detected Is this a current diagnosis for this admission?: Yes Plan: -Has been having fever and cough for the past 2 days -Rapid Covid positive -CXR negative -Does not qualify for remdesivir as he does not need oxygen -Started him on dexamethasone 6 mg IV daily -Ordered convalescent plasma -Vitamin C, zinc (3) Multiple myeloma Qualifiers: Multiple myeloma remission status: not in remission Qualified Code(s): C90.00 - Multiple myeloma not having achieved remission Is this a current diagnosis for this admission?: Yes Plan: -Undergoing chemo weekly -oncology following (4) Diabetes mellitus type 2 in obese Is this a current diagnosis for this admission?: Yes Plan: -On Metformin at home -We will switch him to sliding scale with Accu-Cheks and hypoglycemia protocol (5) History of pulmonary embolism Is this a current diagnosis for this admission?: Yes Plan: Continue Xarelto (6) Hyperlipidemia Qualifiers: Hyperlipidemia type: unspecified Qualified Code(s): E78.5 - Hyperlipidemia, unspecified Is this a current diagnosis for this admission?: Yes Plan: Continue pravastatin (7) Cancer related pain Is this a current diagnosis for this admission?: Yes Plan: Continue oxycodone -Senna for opioid Related constipation (8) HTN (hypertension) Qualifiers: Hypertension type: essential hypertension Qualified Code(s): I10 - Essential (primary) hypertension Is this a current diagnosis for this admission?: Yes Plan: -Currently has episodes of hypotension -He is on lisinopril hydrochlorothiazide at home. Will hold this for now. - Time Time Spent with patient: 25-34 minutes Medications reviewed and adjusted accordingly: Yes Anticipated Discharge Disposition: Home with Home Health Anticipated Discharge Timeframe: tbd
--- NOTE | 2020-06-13 13:26 | EKG REPORT ---
SEVERITY:- ABNORMAL ECG - SINUS RHYTHM ATRIAL PREMATURE COMPLEX NONSPECIFIC T ABNORMALITIES, LATERAL LEADS : Confirmed by: Apolinar Brasher 13-Jun-2020 13:25:16
[2020-06-13] MEDS: ATORVASTATIN CALCIUM 10 MG TABLET PO SCH (21:57)
[2020-06-13] MEDS: INSULIN GLARGINE,HUM.REC.ANLOG 1,000 UNIT/10 ML VIAL SUBCUT SCH (21:59)
[2020-06-14] MEDS: OXYCODONE HCL IR 5 MG TABLET PO PRN ×3 (00:24→16:25)
[2020-06-14] MEDS: VANCOMYCIN HCL 1,500 MG in DEXTROSE 5%-WATER 250 ML IV SCH ×2 (02:00→10:09)
[2020-06-14] MEDS: OXYCODONE HCL SR 40 MG TABLET PO SCH ×3 (05:17→21:08)
[2020-06-14] MEDS: CEFEPIME HCL 2 GM in DEXTROSE 5%-WATER 50 ML IV SCH ×3 (05:19→21:08)
[2020-06-14] MEDS: INSULIN LISPRO 100 UNIT/ML 3 ML VIAL SUBCUT SCH ×4 (07:44→21:09)
[2020-06-14] MEDS: ASPIRIN 81 MG TABLET, ENT COATED PO SCH (10:08)
[2020-06-14] MEDS: ASCORBIC ACID 500 MG TABLET PO SCH ×2 (10:08→17:09)
[2020-06-14] MEDS: ZINC SULFATE 220 MG CAPSULE PO SCH (10:08)
[2020-06-14] MEDS: HYDROCHLOROTHIAZIDE 25 MG TABLET PO SCH (10:08)
[2020-06-14] MEDS: DEXAMETHASONE SOD PHOS INJ 10 MG/1 ML VIAL IV SCH (10:08)
[2020-06-14] MEDS: RIVAROXABAN 10 MG TABLET PO SCH (10:08)
[2020-06-14] MEDS: VALACYCLOVIR HCL 500 MG TABLET PO SCH ×2 (10:09→21:09)
--- NOTE | 2020-06-14 11:15 | CDI QUERY ---
CDI Query CDI Review: We are seeking further clarification of documentation to reflect the severity of illness of your patient. Per Oncology Notes: COVID-19 virus detected Patient does have Covid infection, probable major cause of the fever, convalescent plasma and steroids initiated, continue with supportive care. Thankfully patient is not hypoxic as of now. Pneumonia Continue with antibiotics as planned for neutropenic fever Based on your medical judgement, can you further clarify in the Progress Notes: Pneumonia 2/2 to Covid Pneumonia unknown cause Pneumonia ruled out Unable to determine Other Thank you for your consideration. LARISA ThibodeauxN RN Clinical Surface Lay Out Technician Physician Advisor [email or web address]
[2020-06-14 11:16] LABS: ALBUMIN 2.8 g/dL (3.5-5.0); ALKALINE PHOSPHATASE 54 U/L (38-126); ANION GAP 8 (5-19); ASPARTATE AMINO TRANSFERASE 18 U/L (17-59); BILIRUBIN,DIRECT 0.2 mg/dL (0.0-0.4); BILIRUBIN,TOTAL 0.4 mg/dL (0.2-1.3); BLOOD UREA NITROGEN 13 mg/dL (7-20); CALCIUM 8.8 mg/dL (8.4-10.2); CARBON DIOXIDE 25 mmol/L (22-30); CHLORIDE 103 mmol/L (98-107); GLUCOSE 121 mg/dL (75-110); POTASSIUM 4.2 mmol/L (3.6-5.0)
[2020-06-14 11:18] LABS: HEMATOCRIT 27.7 % (37.9-51.0); HEMOGLOBIN 9.4 g/dL (13.5-17.0); MEAN CORPUSCULAR HEMOGLOBIN 32.3 pg (27.0-33.4); MEAN CORPUSCULAR HGB CONC 33.9 g/dL (32.0-36.0); MEAN CORPUSCULAR VOLUME 96 fl (80-97); PLATELET COUNT 367 10^3/uL (150-450); RED CELL DISTRIBUTION WIDTH 20.1 % (11.5-14.0); WHITE BLOOD COUNT 4.4 10^3/uL (4.0-10.5)
[2020-06-14 11:48] LABS: ABSOLUTE LYMPHOCYTES# (MANUAL) 0.2 10^3/uL (0.5-4.7); ABSOLUTE MONOCYTES # (MANUAL) 0.3 10^3/uL (0.1-1.4); ANISOCYTOSIS 2+; BASOPHILS % (MANUAL) 0 % (0-2); EOSINOPHILS % (MANUAL) 1 % (0-6); LYMPHOCYTES % (MANUAL) 4 % (13-45); MONOCYTES % (MANUAL) 6 % (3-13); SEGMENTED NEUTROPHILS % (MAN) 89 % (42-78); TOTAL CELLS COUNTED 100
[2020-06-14 11:49] LABS: PLATELET COMMENT ADEQUATE
--- NOTE | 2020-06-14 12:15 | PDOC PROGRESS REPORT ---
Subjective Date:: 06/14/20 Subjective:: SHIV CRAIG is a 65 year old male, past medical history of multiple myeloma c urrently on chemo, hypertension, hyperlipidemia, type 2 diabetes who was sent to the ED by his oncologist due to grade fever in the setting of immunocompromise patient. According to the patient he last received chemo about a week prior and has been doing well since then. However since yesterday he developed a fever of 103 associated with cough. He denies having shortness of breath, no loss of s ense of taste or smell, no diarrhea, no body malaise. Denies any known exposure to Covid. The emergency room blood pressure 105/68, rate of 112 sinus, respiratory rate 21, 99% on room air, temperature 100.9. CBC showed WBC count of 3.1, hemoglobin of 8.5, platelet count 324, absolute neutrophil count 2.9. CMP showed sodium of 129, potassium 4.2, creatinine 0.89, CRP 61.6. His x-ray was negative. Urinalysis negative. Patient had a rapid Covid test which was positive. ED physician spoke to Dr. Eaton who advised that the patient be admitted for antibiotics due to neutropenic fever and Covid infection. D2 06/13/20 Hospital stay Patient was seen and examined at bedside. HE reports that he feels much better, still coughing but denies SOB. Afebrile, good appetite. Currently on cefepime and Vanc for neutropenic fever, no growth in blood culture. He received 1 unit of canvalescent plasma and is on dexamethasone. D3 06/14/20 Patient was seen and examined at bedside. He has no new complains and feels well overall. he is not requiring oxygen and his saturation is 95% on room air. he has been afebrile for 48 hrs and blood culture is negative x 48 hrs. Vancomycin was stopped. Reason For Visit: COVID 19 INFECTION,FEVER ON IMMUNOCOMPROMISED Physical Exam Vital Signs: Temp Pulse Resp BP Pulse Ox 97.6 F 61 18 120/66 98 06/14/20 07:26 06/14/20 07:26 06/14/20 04:44 06/14/20 07:26 06/14/20 07:26 Intake & Output 06/13/20 06/14/20 06/15/20 06:59 06:59 06:59 Intake Total 2014 4073 250 Output Total 1600 Balance 415 4073 250 Weight 105.1 kg 104.4 kg General appearance: PRESENT: no acute distress, cooperative Head exam: PRESENT: atraumatic, normocephalic Eye exam: PRESENT: EOMI, PERRLA Mouth exam: PRESENT: moist Neck exam: PRESENT: full ROM Respiratory exam: PRESENT: clear to auscultation nora, symmetrical, unlabored Cardiovascular exam: PRESENT: RRR, +S1, +S2 Pulses: PRESENT: +2 pedal pulses bilateral GI/Abdominal exam: PRESENT: normal bowel sounds, soft, tenderness Extremities exam: PRESENT: full ROM Musculoskeletal exam: PRESENT: full ROM Neurological exam: PRESENT: alert, awake, oriented to person, oriented to place, oriented to time, oriented to situation Psychiatric exam: PRESENT: normal mood Skin exam: PRESENT: normal color Results Laboratory Results: 06/14/20 11:07 06/14/20 10:50 06/14/20 06/14/20 10:50 11:07 WBC 4.4 RBC 2.90 L Hgb 9.4 L Hct 27.7 L MCV 96 MCH 32.3 MCHC 33.9 RDW 20.1 H Plt Count 367 Seg Neutrophils % Not Reportable Sodium 135.5 L Potassium 4.2 Chloride 103 Carbon Dioxide 25 Anion Gap 8 BUN 13 Creatinine 0.71 Est GFR ( Amer) > 60 Glucose 121 H Calcium 8.8 Magnesium 1.5 L Total Bilirubin 0.4 AST 18 Alkaline Phosphatase 54 Total Protein 6.0 L Albumin 2.8 L 06/12/20 06/12/20 06/12/20 10:39 10:39 19:30 Creatine Kinase < 20 L Troponin I 0.025 0.018 Impressions: Chest X-Ray 06/12/20 11:34 IMPRESSION: No acute cardiopulmonary disease. Assessment and Plan - Diagnosis (1) Neutropenic fever Is this a current diagnosis for this admission?: Yes Plan: -Patient currently undergoing chemo for multiple myeloma came in due to high- grade fever 103 associated with cough. -BC count mildly decreased to 3.1, absolute neutrophil count 2.9. -Rapid Covid test positive -Chest x-ray negative -urinalysis normal -Blood cultures negative x 2 days -on cefepime d2 -vanc discontinued. Blood culture negative x 42 hrs -Started on dexamethasone 6 mg IV daily for Covid. -received convalescent plasma -Dr. Eaton following (2) COVID-19 virus detected Is this a current diagnosis for this admission?: Yes Plan: -Has been having fever and cough for the past 2 days -Rapid Covid positive -CXR negative -Does not qualify for remdesivir as he does not need oxygen - I do not think he has pneumonia from COVID -Started him on dexamethasone 6 mg IV daily -received convalescent plasma -Vitamin C, zinc (3) Multiple myeloma Qualifiers: Multiple myeloma remission status: not in remission Qualified Code(s): C90.00 - Multiple myeloma not having achieved remission Is this a current diagnosis for this admission?: Yes Plan: -Undergoing chemo weekly -oncology following (4) Diabetes mellitus type 2 in obese Is this a current diagnosis for this admission?: Yes Plan: -On Metformin at home -We will switch him to sliding scale with Accu-Cheks and hypoglycemia protocol (5) History of pulmonary embolism Is this a current diagnosis for this admission?: Yes Plan: Continue Xarelto (6) Hyperlipidemia Qualifiers: Hyperlipidemia type: unspecified Qualified Code(s): E78.5 - Hyperlipidemia, unspecified Is this a current diagnosis for this admission?: Yes Plan: Continue pravastatin (7) Cancer related pain Is this a current diagnosis for this admission?: Yes Plan: Continue oxycodone -Senna for opioid Related constipation (8) HTN (hypertension) Qualifiers: Hypertension type: essential hypertension Qualified Code(s): I10 - Essential (primary) hypertension Is this a current diagnosis for this admission?: Yes Plan: -Currently has episodes of hypotension -He is on lisinopril hydrochlorothiazide at home. Will hold this for now. - Time Time Spent with patient: 15-24 minutes Medications reviewed and adjusted accordingly: Yes Anticipated Discharge Disposition: Home, Self Care Anticipated Discharge Timeframe: TBD
[2020-06-14] MEDS ORDERED: MAGNESIUM OXIDE 400 MG TABLET PO ONE (13:00)
[2020-06-14] MEDS: RINGERS SOLUTION,LACTATED 1,000 ML IV PRN (14:05)
[2020-06-14] MEDS: INSULIN GLARGINE,HUM.REC.ANLOG 1,000 UNIT/10 ML VIAL SUBCUT SCH (21:09)
[2020-06-14] MEDS: ATORVASTATIN CALCIUM 10 MG TABLET PO SCH (21:09)
[2020-06-15] MEDS: OXYCODONE HCL IR 5 MG TABLET PO PRN ×3 (01:09→10:50)
[2020-06-15] MEDS: RINGERS SOLUTION,LACTATED 1,000 ML IV PRN (03:23)
[2020-06-15 03:58] LABS: RED CELL DISTRIBUTION WIDTH 20.1 % (11.5-14.0)
[2020-06-15 04:16] LABS: HEMATOCRIT 24.3 % (37.9-51.0); MEAN CORPUSCULAR HEMOGLOBIN 31.4 pg (27.0-33.4); MEAN CORPUSCULAR HGB CONC 32.9 g/dL (32.0-36.0); MEAN CORPUSCULAR VOLUME 95 fl (80-97); PLATELET COUNT 321 10^3/uL (150-450); RED BLOOD COUNT 2.55 10^6/uL (4.35-5.55)
[2020-06-15 04:17] LABS: ALBUMIN 2.8 g/dL (3.5-5.0); ALKALINE PHOSPHATASE 55 U/L (38-126); ANION GAP 6 (5-19); ASPARTATE AMINO TRANSFERASE 18 U/L (17-59); BILIRUBIN,DIRECT 0.2 mg/dL (0.0-0.4); BILIRUBIN,TOTAL 0.5 mg/dL (0.2-1.3); BLOOD UREA NITROGEN 13 mg/dL (7-20); CALCIUM 8.5 mg/dL (8.4-10.2); CARBON DIOXIDE 26 mmol/L (22-30); CHLORIDE 103 mmol/L (98-107); GLUCOSE 106 mg/dL (75-110); POTASSIUM 4.1 mmol/L (3.6-5.0); TOTAL PROTEIN 5.9 g/dL (6.3-8.2)
[2020-06-15 04:30] LABS: WHITE BLOOD COUNT 2.6 10^3/uL (4.0-10.5)
[2020-06-15 04:38] LABS: ABSOLUTE LYMPHOCYTES# (MANUAL) 0.1 10^3/uL (0.5-4.7); ABSOLUTE MONOCYTES # (MANUAL) 0.4 10^3/uL (0.1-1.4); BASOPHILS % (MANUAL) 0 % (0-2); EOSINOPHILS % (MANUAL) 3 % (0-6); LYMPHOCYTES % (MANUAL) 4 % (13-45); MONOCYTES % (MANUAL) 15 % (3-13); PLATELET COMMENT ADEQUATE; SEGMENTED NEUTROPHILS % (MAN) 78 % (42-78); TOTAL CELLS COUNTED 100
[2020-06-15 04:39] LABS: ANISOCYTOSIS 2+
[2020-06-15 04:40] LABS: POLYCHROMASIA SLIGHT
[2020-06-15 04:41] LABS: OVALOCYTES SLIGHT; TEAR DROP CELLS SLIGHT
[2020-06-15] MEDS: CEFEPIME HCL 2 GM in DEXTROSE 5%-WATER 50 ML IV SCH (05:45)
[2020-06-15] MEDS: OXYCODONE HCL SR 40 MG TABLET PO SCH (06:45)
[2020-06-15] MEDS: INSULIN LISPRO 100 UNIT/ML 3 ML VIAL SUBCUT SCH (08:14)
[2020-06-15] MEDS: ZINC SULFATE 220 MG CAPSULE PO SCH (09:04)
[2020-06-15] MEDS: ASCORBIC ACID 500 MG TABLET PO SCH (09:04)
[2020-06-15] MEDS: ASPIRIN 81 MG TABLET, ENT COATED PO SCH (09:04)
[2020-06-15] MEDS: RIVAROXABAN 10 MG TABLET PO SCH (09:04)
[2020-06-15] MEDS: DEXAMETHASONE SOD PHOS INJ 10 MG/1 ML VIAL IV SCH (09:04)
[2020-06-15] MEDS: HYDROCHLOROTHIAZIDE 25 MG TABLET PO SCH (09:04)
[2020-06-15] MEDS ORDERED: MAGNESIUM OXIDE 400 MG TABLET PO SCH (10:00)
[2020-06-15 10:39] VITALS: BP 105/56
[2020-06-15] MEDS: VALACYCLOVIR HCL 500 MG TABLET PO SCH (10:50)
--- NOTE | 2020-06-15 11:48 | PDOC DISCHARGE SUMMARY ---
Impression - Admit/DC Date/PCP Admission Date/Primary Care Provider: 06/12/20 15:42 PRINCE OSBORNE MD Discharge Date: 06/15/20 - Discharge Diagnosis (1) Neutropenic fever Is this a current diagnosis for this admission?: Yes (2) COVID-19 virus detected Is this a current diagnosis for this admission?: Yes (3) Multiple myeloma Is this a current diagnosis for this admission?: Yes (4) Diabetes mellitus type 2 in obese Is this a current diagnosis for this admission?: Yes (5) History of pulmonary embolism Is this a current diagnosis for this admission?: Yes (6) Hyperlipidemia Is this a current diagnosis for this admission?: Yes (7) Cancer related pain Is this a current diagnosis for this admission?: Yes (8) HTN (hypertension) Is this a current diagnosis for this admission?: Yes - Assessment Summary: (1) Neutropenic fever Is this a current diagnosis for this admission?: Yes Plan: -Patient currently undergoing chemo for multiple myeloma came in due to high- grade fever 103 associated with cough. -BC count mildly decreased to 3.1, absolute neutrophil count 2.9. -Rapid Covid test positive -Chest x-ray negative -urinalysis normal -Blood cultures negative x 2 days -on cefepime d2 -vanc discontinued. Blood culture negative x 42 hrs -Started on dexamethasone 6 mg IV daily for Covid. -received convalescent plasma -Dr. Osborne following (2) COVID-19 virus detected Is this a current diagnosis for this admission?: Yes Plan: -Has been having fever and cough for the past 2 days -Rapid Covid positive -CXR negative -Does not qualify for remdesivir as he does not need oxygen - I do not think he has pneumonia from COVID -Started him on dexamethasone 6 mg IV daily -received convalescent plasma -Vitamin C, zinc (3) Multiple myeloma Qualifiers: Multiple myeloma remission status: not in remission Qualified Code(s): C90.00 - Multiple myeloma not having achieved remission Is this a current diagnosis for this admission?: Yes Plan: -Undergoing chemo weekly -oncology following (4) Diabetes mellitus type 2 in obese Is this a current diagnosis for this admission?: Yes Plan: -On Metformin at home -We will switch him to sliding scale with Accu-Cheks and hypoglycemia protocol (5) History of pulmonary embolism Is this a current diagnosis for this admission?: Yes Plan: Continue Xarelto (6) Hyperlipidemia Qualifiers: Hyperlipidemia type: unspecified Qualified Code(s): E78.5 - Hyperlipidemia, unspecified Is this a current diagnosis for this admission?: Yes Plan: Continue pravastatin (7) Cancer related pain Is this a current diagnosis for this admission?: Yes Plan: Continue oxycodone -Senna for opioid Related constipation (8) HTN (hypertension) Qualifiers: Hypertension type: essential hypertension Qualified Code(s): I10 - Essential (primary) hypertension Is this a current diagnosis for this admission?: Yes Plan: -Currently has episodes of hypotension -He is on lisinopril hydrochlorothiazide at home. Will hold this for now. - Additional Information Resuscitation Status: Do Not Resuscitate Discharge Activity: Activity As Tolerated Referrals: PRINCE OSBORNE MD [Primary Care Provider] - Follow up as needed Prescriptions: Amoxicillin/Potassium Clav [Augmentin 875-125 Tablet] 1 tab PO Q12 5 Days #10 tablet Ciprofloxacin HCl [Cipro 750 mg Tablet] 750 mg PO DAILY 5 Days #5 tablet Magnesium Oxide [Mag-Ox 400 mg Tablet] 400 mg PO BID 3 Days #6 tablet Acetaminophen [Tylenol 325 mg Tablet] 650 mg PO Q4HP PRN 5 Days #20 tablet PRN Reason: Home Medications: Insulin Glargine,Hum.rec.anlog [Lantus] 10 units SQ QHS 08/27/16 Lisinopril/Hydrochlorothiazide [Zestoretic 20-25 mg Tablet] 1 tab PO DAILY 08/27/16 Metformin HCl [Glucophage] 1,000 mg PO BID 08/27/16 Omeprazole 20 mg PO BID 08/27/16 Pravastatin Sodium [Pravachol] 40 mg PO QHS 08/27/16 Oxycodone HCl [Oxycodone HCl 10 MG Tablet] 20 mg PO Q4HP PRN 11/08/17 Valacyclovir HCl [Valtrex] 500 mg PO Q12 11/08/17 Insulin Aspart [Novolog Insulin (Aspart) 100 unit/mL] 0 units SUBCUT .SLIDING SCALE PRN 04/25/18 Promethazine HCl [Phenergan 25 mg Tablet] 25 mg PO Q8HP PRN 05/22/19 Rivaroxaban [Xarelto] 20 mg PO DAILY 05/22/19 Aspirin [Ecotrin 81 mg EC Tablet] 81 mg PO DAILY 06/12/20 Benzonatate [Tessalon Perles 100 mg Capsule] 100 mg PO Q8HP PRN 06/12/20 Calcium Carbonate [Os-Pollo 500 mg Tablet (Oyster-Shell)] 500 mg PO BID 06/12/20 Dexamethasone [Decadron 4 mg Tablet] 40 mg PO .CHEMO DAYS 06/12/20 Loratadine [Claritin 10 mg Tablet] 10 mg PO DAILY 06/12/20 Lorazepam [Ativan 0.5 mg Tablet] 0.5 mg PO Q8HP PRN 06/12/20 Multivitamin [Tab-A-Rea (Multiple Vitamin) Tablet] 1 tab PO DAILY 06/12/20 Oxycodone HCl [Oxycontin Sr 40 mg Tablet] 40 mg PO Q8 06/12/20 Acetaminophen [Tylenol 325 mg Tablet] 650 mg PO Q4HP PRN 5 Days #20 tablet 06/15/20 Amoxicillin/Potassium Clav [Augmentin 875-125 Tablet] 1 tab PO Q12 5 Days #10 tablet 06/15/20 Ciprofloxacin HCl [Cipro 750 mg Tablet] 750 mg PO DAILY 5 Days #5 tablet 06/15/20 Magnesium Oxide [Mag-Ox 400 mg Tablet] 400 mg PO BID 3 Days #6 tablet 06/15/20 History of Present Illiness History of Present Illness: SHIV CRAIG is a 65 year old male, past medical history of multiple myeloma currently on chemo, hypertension, hyperlipidemia, type 2 diabetes who was sent to the ED by his oncologist due to grade fever in the setting of immunocompromise patient. According to the patient he last received chemo about a week prior and has been doing well since then. However since yesterday he developed a fever of 103 associated with cough. He denies having shortness of breath, no loss of sense of taste or smell, no diarrhea, no body malaise. Denies any known exposure to Covid. The emergency room blood pressure 105/68, rate of 112 sinus, respiratory rate 21, 99% on room air, temperature 100.9. CBC showed WBC count of 3.1, hemoglobin of 8.5, platelet count 324, absolute neutrophil count 2.9. CMP showed sodium of 129, potassium 4.2, creatinine 0.89, CRP 61.6. His x-ray was negative. Urinalysis negative. Patient had a rapid Covid test which was positive. ED physician spoke to Dr. Osborne who advised that the patient be admitted for antibiotics due to neutropenic fever and Covid infection. Hospital Course Hospital Course: D2 06/13/20 Hospital stay Patient was seen and examined at bedside. HE reports that he feels much better, still coughing but denies SOB. Afebrile, good ap petite. Currently on cefepime and Vanc for neutropenic fever, no growth in blood culture. He received 1 unit of canvalescent plasma and is on dexamethasone. D3 06/14/20 Patient was seen and examined at bedside. He has no new complains and feels well overall. he is not requiring oxygen and his saturation is 95% on room air. he has been afebrile for 48 hrs and blood culture is negative x 48 hrs. Vancomycin was stopped. D3 Patient remained afebrile. Blood cultures negative. ANC 2.0. Dr Victoria was updated and she agreed for discharge. He will go home with home abx. Physical Exam Vital Signs: Temp Pulse Resp BP Pulse Ox 98.5 F 69 16 105/56 L 97 06/15/20 10:37 06/15/20 10:37 06/15/20 10:37 06/15/20 10:37 06/15/20 10:37 Intake & Output 06/14/20 06/15/20 06/16/20 06:59 06:59 06:59 Intake Total 4073 3520 Balance 4073 3520 Weight 104.4 kg 103.1 kg General appearance: PRESENT: no acute distress, cooperative Head exam: PRESENT: atraumatic, normocephalic Eye exam: PRESENT: EOMI, PERRLA Mouth exam: PRESENT: moist Neck exam: PRESENT: full ROM Respiratory exam: PRESENT: clear to auscultation nora, symmetrical, unlabored Cardiovascular exam: PRESENT: RRR, +S1, +S2 Pulses: PRESENT: +2 pedal pulses bilateral GI/Abdominal exam: PRESENT: normal bowel sounds, soft. ABSENT: rebound, tenderness Extremities exam: PRESENT: full ROM Musculoskeletal exam: PRESENT: full ROM Neurological exam: PRESENT: alert, awake, oriented to person, oriented to place, oriented to time, oriented to situation Psychiatric exam: PRESENT: normal mood Skin exam: PRESENT: normal color Results Laboratory Results: WBC 2.6 10^3/uL (4.0-10.5) L D 06/15/20 03:35 RBC 2.55 10^6/uL (4.35-5.55) L 06/15/20 03:35 Hgb 8.0 g/dL (13.5-17.0) L 06/15/20 03:35 Hct 24.3 % (37.9-51.0) L 06/15/20 03:35 MCV 95 fl (80-97) 06/15/20 03:35 MCH 31.4 pg (27.0-33.4) 06/15/20 03:35 MCHC 32.9 g/dL (32.0-36.0) 06/15/20 03:35 RDW 20.1 % (11.5-14.0) H 06/15/20 03:35 Plt Count 321 10^3/uL (150-450) 06/15/20 03:35 Lymph % (Auto) Not Reportable 06/15/20 03:35 Delta % (Auto) Not Reportable 06/15/20 03:35 Eos % (Auto) Not Reportable 06/15/20 03:35 Baso % (Auto) Not Reportable 06/15/20 03:35 Absolute Neuts (auto) Not Reportable 06/15/20 03:35 Absolute Lymphs (auto) Not Reportable 06/15/20 03:35 Absolute Monos (auto) Not Reportable 06/15/20 03:35 Absolute Eos (auto) Not Reportable 06/15/20 03:35 Absolute Basos (auto) Not Reportable 06/15/20 03:35 Total Counted 100 06/15/20 03:35 Seg Neutrophils % Not Reportable 06/15/20 03:35 Seg Neuts % (Manual) 78 % (42-78) 06/15/20 03:35 Band Neutrophils % 1 % (3-5) L 06/13/20 05:30 Lymphocytes % (Manual) 4 % (13-45) L 06/15/20 03:35 Monocytes % (Manual) 15 % (3-13) H 06/15/20 03:35 Eosinophils % (Manual) 3 % (0-6) 06/15/20 03:35 Basophils % (Manual) 0 % (0-2) 06/15/20 03:35 Abs Neuts (Manual) 2.0 10^3/uL (1.7-8.2) 06/15/20 03:35 Abs Lymphs (Manual) 0.1 10^3/uL (0.5-4.7) L 06/15/20 03:35 Abs Monocytes (Manual) 0.4 10^3/uL (0.1-1.4) 06/15/20 03:35 Absolute Eos (Manual) 0.1 10^3/uL (0.0-0.6) 06/15/20 03:35 Abs Basophils (Manual) 0.0 10^3/uL (0.0-0.2) 06/15/20 03:35 Toxic Granulation SLIGHT 06/12/20 10:39 Clumped Platelets PRESENT 06/12/20 10:39 Platelet Comment ADEQUATE 06/15/20 03:35 Polychromasia SLIGHT 06/15/20 03:35 Poikilocytosis SLIGHT 06/13/20 05:30 Anisocytosis 2+ 06/15/20 03:35 Tear Drop Cells SLIGHT 06/15/20 03:35 Ovalocytes SLIGHT 06/15/20 03:35 Schistocytes SLIGHT 06/13/20 05:30 PT 14.9 SEC (11.4-15.4) 06/12/20 19:30 INR 1.15 06/12/20 19:30 D-Dimer 1.47 ug/mL (0.00-0.50) H 06/12/20 19:30 VBG pH 7.40 (7.30-7.42) 06/12/20 11:52 VBG pCO2 44.0 mmHg (35-63) 06/12/20 11:52 VBG HCO3 26.4 mmol/L (20-32) 06/12/20 11:52 VBG Base Excess 1.3 mmol/L 06/12/20 11:52 Sodium 134.7 mmol/L (137-145) L 06/15/20 03:35 Potassium 4.1 mmol/L (3.6-5.0) 06/15/20 03:35 Chloride 103 mmol/L (98-107) 06/15/20 03:35 Carbon Dioxide 26 mmol/L (22-30) 06/15/20 03:35 Anion Gap 6 (5-19) 06/15/20 03:35 BUN 13 mg/dL (7-20) 06/15/20 03:35 Creatinine 0.71 mg/dL (0.52-1.25) 06/15/20 03:35 Est GFR ( Amer) > 60 (>60) 06/15/20 03:35 Est GFR (MDRD) Non-Af > 60 (>60) 06/15/20 03:35 Glucose 106 mg/dL (75-110) 06/15/20 03:35 POC Glucose 113 mg/dL (70-110) H 06/13/20 11:44 Lactic Acid 0.9 mmol/L (0.7-2.1) 06/12/20 10:39 Calcium 8.5 mg/dL (8.4-10.2) 06/15/20 03:35 Magnesium 1.5 mg/dL (1.6-2.3) L 06/15/20 03:35 Ferritin 432.00 ng/mL (17.9-464.0) 06/12/20 19:30 Total Bilirubin 0.5 mg/dL (0.2-1.3) 06/15/20 03:35 Direct Bilirubin 0.2 mg/dL (0.0-0.4) 06/15/20 03:35 Neonat Total Bilirubin Not Reportable 06/15/20 03:35 Neonat Direct Bilirubin Not Reportable 06/15/20 03:35 Neonat Indirect Bili Not Reportable 06/15/20 03:35 AST 18 U/L (17-59) 06/15/20 03:35 ALT 12 U/L (<50) 06/15/20 03:35 Alkaline Phosphatase 55 U/L (38-126) 06/15/20 03:35 Creatine Kinase < 20 U/L (55-170) L 06/12/20 10:39 Troponin I 0.018 ng/mL 06/12/20 19:30 C-Reactive Protein 61.6 mg/L (<10.0) H 06/12/20 19:30 Total Protein 5.9 g/dL (6.3-8.2) L 06/15/20 03:35 Albumin 2.8 g/dL (3.5-5.0) L 06/15/20 03:35 Urine Color STRAW 06/12/20 22:20 Urine Appearance CLEAR 06/12/20 22:20 Urine pH 7.0 (5.0-9.0) 06/12/20 22:20 Ur Specific [place] 1.008 06/12/20 22:20 Urine Protein NEGATIVE mg/dL (NEGATIVE) 06/12/20 22:20 Urine Glucose (UA) NEGATIVE mg/dL (NEGATIVE) 06/12/20 22:20 Urine Ketones NEGATIVE mg/dL (NEGATIVE) 06/12/20 22:20 Urine Blood NEGATIVE (NEGATIVE) 06/12/20 22:20 Urine Nitrite NEGATIVE (NEGATIVE) 06/12/20 22:20 Urine Bilirubin NEGATIVE (NEGATIVE) 06/12/20 22:20 Urine Urobilinogen NEGATIVE mg/dL (<2.0) 06/12/20 22:20 Ur Leukocyte Esterase NEGATIVE (NEGATIVE) 06/12/20 22:20 Urine WBC (Auto) 0 /HPF 06/12/20 22:20 Urine RBC (Auto) 0 /HPF 06/12/20 22:20 Urine Ascorbic Acid NEGATIVE (NEGATIVE) 06/12/20 22:20 Time Trough Drawn Cancelled 06/14/20 10:50 Vancomycin Trough Cancelled 06/14/20 10:50 COVID-19 Source Cancelled 06/12/20 14:00 COVID-19 (ELEAZAR) Cancelled 06/12/20 14:00 Influenza A (RT-PCR) NEGATIVE (NEGATIVE) 06/12/20 14:00 Influenza B (RT-PCR) NEGATIVE (NEGATIVE) 06/12/20 14:00 RSV (RT-PCR) NEGATIVE (NEGATIVE) 06/12/20 14:00 SARS-CoV-2 Rap RNA(RT-PCR) POSITIVE (NEGATIVE) 06/12/20 14:00 Blood Type B NEGATIVE 06/12/20 19:30 06/12/20 06/12/20 10:39 19:30 Troponin I 0.025 0.018 Impressions: Chest X-Ray 06/12/20 11:34 IMPRESSION: No acute cardiopulmonary disease. Plan Plan of Treatment: - continue home abx - ff.up with PCP Time Spent: Less than 30 Minutes Stroke Is this a Stroke Patient?: No Acute Heart Failure Is this a Heart Failure Patient?: No
== END 2020-06-15 12:47 | disposition home or self-care (01) | DRG 177 ==
LOC: ER 10:06 → EH 15:42 → ICU 18:22 → 3W 06-13 03:29
PROVIDERS: ADMIT Internal Medicine; ATTEND Internal Medicine
PROC: XW13325 Transfusion of Convalescent Plasma (Nonautologous) into Peripheral Vein, Percutaneous Approach, New Technology Group 5 (ICD-10-PCS; principal; 2020-06-13)
DX: U07.1 COVID-19 (principal); D61.810 Antineoplastic chemotherapy induced pancytopenia; C90.00 Multiple myeloma not having achieved remission; D84.9 Immunodeficiency, unspecified; R05 Cough; E11.9 Type 2 diabetes mellitus without complications; T45.1X5A Adverse effect of antineoplastic and immunosuppressive drugs, initial encounter; G89.3 Neoplasm related pain (acute) (chronic); I10 Essential (primary) hypertension; E78.5 Hyperlipidemia, unspecified; Z84.89 Family history of other specified conditions; R50.9 Fever, unspecified; Z86.711 Personal history of pulmonary embolism; M19.90 Unspecified osteoarthritis, unspecified site; Z66 Do not resuscitate; Z83.3 Family history of diabetes mellitus; Z82.49 Family history of ischemic heart disease and other diseases of the circulatory system; Z79.899 Other long term (current) drug therapy; Z79.82 Long term (current) use of aspirin; Z79.84 Long term (current) use of oral hypoglycemic drugs; Z79.01 Long term (current) use of anticoagulants
CPT/HCPCS: 36415; 36430; 71045; 80053; 81001; 82550; 82728; 82803; 82962; 83605; 83735; 84484; 85025; 85379; 85610; 86140; 86900; 86901; 87040; 87086; 93005; 93010; 96365; 96366; 96367; 99285; 0241U; C9803; J0692; J1100; J1642; J1815; J3370; J3490; J7030; J7060; J7120